=== PATIENT | male | born 1945 | race Caucasian/White ===

== ENCOUNTER 2025-01-13 21:13 | Inpatient (IN) | payer MEDICARE, SELFPAY ==
[2025-01-13 21:14] VITALS: BMI 32.8
--- NOTE | 2025-01-13 21:19 | EKG_ITS ---
[facility] Test Date: 2025-01-13 Pat Name: DORA HOGAN Department: Room: - Gender: Male Templer Head: : 1945 Requested By: Eriberto Vegas Order Number: [id number] Reading MD: Eriberto Vegas Measurements Intervals [place] Rate: 109 P: 63 [place]: 184 QRS: -55 QRSD: 117 T: 102 QT: 332 QTc: 448 Interpretive Statements SINUS TACHYCARDIA LEFT AXIS DEVIATION [QRS AXIS < -30] LEFT VENTRICULAR HYPERTROPHY AND ST-T CHANGE [VOLTAGE CRITERIA PLUS ST/T ABNORMALITY] POSSIBLE ANTEROSEPTAL MYOCARDIAL INFARCTION , OF INDETERMINATE AGE [30 ms Q WAVE IN V1-V4] No previous ECG available for comparison /store/S0/[id number]/[id number]
[2025-01-13 21:25] VITALS: BP 174/67; PULSE 114; RESP 20; TEMP 36.6; O2SAT 92
--- NOTE | 2025-01-13 21:35 | XR_ITS ---
Examination: CTA chest with intravenous contrast 2-D reconstructions 3-D reconstructions, vascular Date and time of exam: January 14, 2025 0155 hrs. Indications: Chest pain shortness of breath today CTDI: vol (mGy) 11.8 DLP: (mGycm) 465 Technique: Multiple axial sections of the thorax have been obtained. 3 mm slice thickness, from below the hemidiaphragms to above the apices of the lungs. Mediastinal and lung density settings have been obtained. 2-D sagittal and coronal reconstructions. 3-D angiographic renderings, 3-D volume renderings, 3D post processing, vascular maximum intensity projections obtained. Contrast administered is 100 cc Isovue-370. Low dose protocols were performed. One or more of the following dose reduction techniques were used; automated exposure control, adjustment of the mA and/or KV according to patient size, use of iterative reconstruction technique. Findings: Thoracic aortic calcification no aneurysmal dilatation Main pulmonary artery segment 37 mm No pulmonary artery emboli No paratracheal tracheobronchial or bronchopulmonary adenopathy Atelectasis in the left lower lobe Small calcified granuloma right lower lobe No pneumonia or pulmonary edema 6 mm liver cyst No splenic or pancreatic lesion No hydronephrosis Impression: Pulmonary artery hypertension pattern Negative for pulmonary artery emboli No pneumonia or pulmonary edema
--- NOTE | 2025-01-13 21:35 | XR_ITS ---
Examination: PA chest single view Technique: Upright PA chest single view Exam date and time: November 15, 2024 2144 hrs. Indications: Hypertension today. Findings: Mild CHF Mild enlargement cardiac contour, prosthetic mitral valve Prominent vascular congestion including central vascular engorgement Subtle edema at the lung bases Atelectasis left base Impression: Mild CHF
[2025-01-13 22:02] LABS: Lactate (Lactic Acid) 1.2 mMol/L (0.4-2.0)
[2025-01-13 22:05] LABS: Basophils # (Auto) 0.1 Thou/mm3 (0.0-0.2); Basophils % (Auto) 1 % (0-2.5); Eosinophils # (Auto) 0.4 Thou/mm3 (0.0-0.5); Eosinophils % (Auto) 5 % (0-10); Hematocrit 41.8 % (41.0-53.0); Hemoglobin 14.1 g/dL (13.5-16.0); Immature Granulocytes % (Auto) 0 % (0-0); Immature Granulocytes Auto 0.04 Thou/mm3 (0.00-0.00); Lymphocytes % (Auto) 21 % (10-50); Mean Corpuscular HGB Conc 33.7 g/dl (31.0-37.0); Mean Corpuscular Hemoglobin 29.4 pg (25.0-35.0); Mean Corpuscular Volume 87 fL (80-100); Monocytes # (Auto) 0.7 Thou/mm3 (0.0-0.8); Monocytes % (Auto) 8 % (0-12); Neutrophils # (Auto) 6.2 Thou/mm3 (1.8-7.7); Neutrophils % (Auto) 65 % (37-80); Nucleated Red Blood Cell % 0 /100 WBC (0); Platelet Count 264 Thou/mm3 (140-440); RDW Standard Deviation 43.1 fL (35.1-43.9); Red Blood Count 4.79 Miln/mm3 (4.50-5.90); White Blood Count 9.5 Thou/mm3 (3.8-10.6)
[2025-01-13 22:18] LABS: Partial Thromboplastin Time 24.8 Seconds (22.0-36.0); Prothrombin Time 10.9 Seconds (9.0-12.2)
[2025-01-13 22:21] VITALS: BP 157/72; PULSE 90; RESP 19; O2SAT 98
[2025-01-13 22:23] LABS: B-Type Natriuretic Peptide 295 pg/mL (0-100)
[2025-01-13 22:32] LABS: Alanine Aminotransferase 12 U/L (10-49); Albumin, Serum 4.1 gm/dL (3.4-4.8); Albumin/Globulin Ratio 1.5 (1.2-2.2); Alkaline Phosphatase 83 U/L (46-116); Anion Gap 7 (7-16); Aspartate Amino Transferase 16 U/L (0-34); BUN/Creatinine Ratio 8 Ratio (12-20); Bilirubin,Total 0.5 mg/dL (0.3-1.2); Blood Urea Nitrogen 8 mg/dL (9-23); Calcium 9.1 mg/dL (8.3-10.6); Calcium (Corrected) 9.1 mg/dL (8.5-10.1); Carbon Dioxide 26.5 mMol/L (20.0-31.0); Chloride 104 mMol/L (98-107); Estimated Creatinine Clearance 58.3 mL/min (>60); Globulin 2.8 gm/dL (2.3-3.5); Glucose 156 mg/dL (74-106); Magnesium 1.8 mg/dL (1.6-2.6); Osmolality,Calculated 275 (275-295); Potassium 3.8 mMol/L (3.4-5.1); Procalcitonin 0.04 ng/ml (0.0-0.49); Sodium 137 mMol/L (136-145); Total Protein 6.9 gm/dL (5.7-8.2); Troponin I 0.026 ng/mL (0.0-0.045); eGFR > 60 See Note
--- NOTE | 2025-01-13 22:32 | PD.EDCHEST ---
ED Chest Pain RME/HPI General Chief Complaint: Chest Pain Stated Complaint: HIGH HEART RATE AND BP Time Seen by Provider: 01/13/25 21:35 Arrival date/time: 01/13/25 21:13 79M with history NF, mitral valve repair (2016), HTN, and HLD presents to ED with 1 hour of SOB and elevated BP/HR. Patient denies URI symptoms and CP. Related Data Home Medications ?Medication ?Instructions ?Recorded ?Confirmed alendronate 10 mg tablet 10 mg PO BID 12/01/17 01/18/22 aspirin 81 mg tablet 81 mg PO QDAY 01/18/22 01/18/22 atorvastatin 40 mg tablet 40 mg PO QPM 01/18/22 01/18/22 calcium 600 mg (as carbonate)-vit 1 tab PO DAILY 01/18/22 01/18/22 D3 10 mcg (400 unit) chewable tablet (Calcium 600 with Vitamin D3) cyanocobalamin (vitamin B-12) 1,000 mcg PO QDAY 01/18/22 01/18/22 1,000 mcg tablet docusate sodium 100 mg capsule 1 mg PO BID 01/18/22 01/18/22 (Colace) flaxseed 1,000 mg capsule 1,400 mg PO DAILY 01/18/22 01/18/22 gabapentin 600 mg tablet 600 mg PO BID 01/18/22 01/18/22 metoprolol tartrate 25 mg tablet 25 mg PO BID 01/18/22 01/18/22 naproxen 250 mg tablet 250 mg BID 01/18/22 01/18/22 Allergies Allergy/AdvReac Type Severity Reaction Status Date / Time honeydew melon Allergy Severe Anaphylaxis Uncoded 01/18/22 17:25 Past Medical History Past Medical History NEUROLOGIC: Negative Neurological Disorders or Seizures CARDIAC: Positive Cardiac Disorders (htn, mitral valve regurgitation), Hypercholesterolemia, Valvular Heart Disease (MITRAL VALVE REPAIRED IN 2015) and Hypertension; Negative Congestive Heart Failure RESPIRATORY: Negative Chronic Obstructive Pulmonary Disease (COPD) or Asthma GASTROINTESTINAL: Negative Gastrointestinal Disorders GENITOURINARY: Negative Genitourinary Disorders or Renal Disease REPRODUCTIVE: Negative Breast Cancer MUSCULOSKELETAL: Positive Musculoskeletal Disorders and Osteoporosis (TAKES FOSOMAX) ENT: Positive Cataracts (OU) ENDOCRINE: Negative Endocrine Disorders, Diabetes Mellitus Type 1 or Diabetes Mellitus Type 2 HEMATOLOGIC: Negative Blood Disorders or Sickle Cell Disease OTHER HISTORY: Positive Measles; Negative Blood Transfusions, Blood Transfusion Reaction, Anesthesia Reactions or Breast Cancer Family History FAMILY HISTORY: Positive Family Cardiac Disorders (BROTHER-[place]) Surgical History SURGICAL: Positive Cardiac Surgery, Open Heart Surgery (MITRAL VALVE REPAIRED 2015), Valve Replacement (REPAIRED) and Abdominal Surgery (BILATERAL INGUINAL HERNIA W/ MEASH); Negative Joint Replacement, Neurologic Surgery or Vasectomy Social History SMOKING STATUS: Never smoker Course Orders Category Date Time Status CT Screening NOW Care 01/13/25 21:36 Active Assistant Terminal Manager Q4H START 00 Care 01/13/25 21:36 Active EKG (ED ONLY) *Do not use* NOW Care 01/13/25 21:19 Completed Insert IV NOW Care 01/13/25 21:[address] angio chest Stat Exams 01/13/25 21:35 Ordered EKG (ED Only) Stat Exams 01/13/25 21:19 Draft XR chest 1V portable Stat Exams 01/13/25 21:35 Completed B-Type Natriuretic Peptide Stat Lab 01/13/25 21:43 Completed CBC Stat Lab 01/13/25 21:43 Completed Comprehensive Metabolic Panel Stat Lab 01/13/25 21:43 Completed Lactate (Lactic Acid) Stat Lab 01/13/25 21:43 Completed Magnesium Stat Lab 01/13/25 21:43 Completed Partial Thromboplastin Time Stat Lab 01/13/25 21:43 Completed Procalcitonin Stat Lab 01/13/25 21:43 Completed Prothrombin Time with INR Stat Lab 01/13/25 21:43 Completed Troponin I Stat Lab 01/13/25 21:43 Completed Nitroglycerin [Nitrostat 1/150] Med 01/13/25 21:55 Discontinued 0.4 mg SL X1 ONE Oxygen Delivery NOW RT 01/13/25 21:36 Active Vital Signs Vital signs: Vital Signs Temperature 97.9 F 01/13/25 21:25 Pulse Rate 114 H 01/13/25 21:25 Respiratory Rate 20 01/13/25 21:25 Blood Pressure 174/67 H 01/13/25 21:25 Pulse Oximetry (%) 92 L 01/13/25 21:25 Oxygen Delivery Method Room Air 01/13/25 21:25 Chest Pain MDM Narrative MDM Narrative:: 79M with history NF, mitral valve repair (2015), HTN, and HLD presents to ED with 1 hour of SOB and elevated BP/HR. Patient denies URI symptoms and CP. Physical exam reveals clear lungs. Mildly increased WOB. Patient is afebrile, calm, and alert. EKG shows sinus tach of Medications / Prescriptions Medication administrations:: Medication Administration History Discontinued Medications Nitroglycerin (Nitroglycerin 0.4 Mg Subl Btl #25) 0.4 mg SL X1 ONE Stop: 01/13/25 21:56 Discharge Plan Prescriptions/Referrals Prescriptions/Med Rec: No Action alendronate 10 mg Tablet 10 mg PO BID atorvastatin 40 mg Tablet 40 mg PO QPM gabapentin 600 mg Tablet 600 mg PO BID metoprolol tartrate 25 mg Tablet 25 mg PO BID naproxen 250 mg Tablet 250 mg BID cyanocobalamin (vitamin B-12) 1,000 mcg Tablet 1,000 mcg PO QDAY docusate sodium [Colace] 100 mg Capsule 1 mg PO BID aspirin 81 mg Tablet 81 mg PO QDAY Calcium 600 with Vitamin D3 600 mg-10 mcg (400 unit) Tablet,Chewable 1 tab PO DAILY flaxseed 1,000 mg Capsule 1,400 mg PO DAILY Referrals: No Primary/Family,Physician [Primary Care Provider] - In 1 week Patient/Caregiver Discharge Instructions Print Language: Irish
--- NOTE | 2025-01-13 22:36 | PD.EDSOB ---
ED SOB =RME/HPI General Chief Complaint: Chest Pain Stated Complaint: HIGH HEART RATE AND BP Time Seen by Provider: 01/13/25 21:35 Arrival date/time: 01/13/25 21:13 79M with history of NF, mitral valve repair (2016), HTN, and HLD presents to ED with 1 hour of SOB and elevated BP/HR. Patient denies URI symptoms and CP. Limitations: no limitations Related Data Home Medications ?Medication ?Instructions ?Recorded ?Confirmed alendronate 10 mg tablet 10 mg PO BID 12/01/17 01/18/22 aspirin 81 mg tablet 81 mg PO QDAY 01/18/22 01/18/22 atorvastatin 40 mg tablet 40 mg PO QPM 01/18/22 01/18/22 calcium 600 mg (as carbonate)-vit 1 tab PO DAILY 01/18/22 01/18/22 D3 10 mcg (400 unit) chewable tablet (Calcium 600 with Vitamin D3) cyanocobalamin (vitamin B-12) 1,000 mcg PO QDAY 01/18/22 01/18/22 1,000 mcg tablet docusate sodium 100 mg capsule 1 mg PO BID 01/18/22 01/18/22 (Colace) flaxseed 1,000 mg capsule 1,400 mg PO DAILY 01/18/22 01/18/22 gabapentin 600 mg tablet 600 mg PO BID 01/18/22 01/18/22 metoprolol tartrate 25 mg tablet 25 mg PO BID 01/18/22 01/18/22 naproxen 250 mg tablet 250 mg BID 01/18/22 01/18/22 Allergies Allergy/AdvReac Type Severity Reaction Status Date / Time honeydew melon Allergy Severe Anaphylaxis Uncoded 01/14/25 04:44 Review of Systems Review of Systems Systems Reviewed: All systems reviewed, normal except as documented Constitutional Constitutional: Reports system reviewed and no additional complaints, except as documented, Denies fever(s) and Denies headache(s) ENT Ears, Nose, Mouth, and Throat: Denies disequilibrium and Denies headache(s) Cardiovascular Cardiovascular: Reports system reviewed and no additional complaints, except as documented, Reports as per HPI and Reports dyspnea Respiratory Respiratory: Reports system reviewed and no additional complaints, except as documented, Denies cough and Reports dyspnea Gastrointestinal Gastrointestinal: Reports system reviewed and no additional complaints, except as documented, Denies abdominal pain, Denies nausea and Denies vomiting Neurologic Neurologic: Reports system reviewed and no additional complaints, except as documented, Denies confusion, Denies disequilibrium and Denies headache(s) Psychiatric Psychiatric: Denies confusion Past Medical History Past Medical History NEUROLOGIC: Negative Neurological Disorders or Seizures CARDIAC: Positive Cardiac Disorders, Hypercholesterolemia, Valvular Heart Disease (MITRAL VALVE REPAIRED IN 2015) and Hypertension; Negative Congestive Heart Failure RESPIRATORY: Negative Chronic Obstructive Pulmonary Disease (COPD) or Asthma GASTROINTESTINAL: Negative Gastrointestinal Disorders GENITOURINARY: Negative Genitourinary Disorders or Renal Disease REPRODUCTIVE: Negative Breast Cancer MUSCULOSKELETAL: Positive Musculoskeletal Disorders and Osteoporosis (TAKES FOSOMAX) ENT: Positive Cataracts (OU) ENDOCRINE: Negative Endocrine Disorders, Diabetes Mellitus Type 1 or Diabetes Mellitus Type 2 HEMATOLOGIC: Negative Blood Disorders or Sickle Cell Disease OTHER HISTORY: Positive Measles; Negative Blood Transfusions, Blood Transfusion Reaction, Anesthesia Reactions or Breast Cancer Family History FAMILY HISTORY: Positive Family Cardiac Disorders (BROTHER-[place]) Surgical History SURGICAL: Positive Cardiac Surgery, Open Heart Surgery (MITRAL VALVE REPAIRED 2016), Valve Replacement (REPAIRED) and Abdominal Surgery (BILATERAL INGUINAL HERNIA W/ MEASH); Negative Joint Replacement, Neurologic Surgery or Vasectomy Social History SMOKING STATUS: Never smoker ED Exam General Limitations: Present no limitations General appearance: Present alert and in no apparent distress Head Head exam: Present atraumatic Eye Eye exam: Present normal appearance, PERRL and EOMI ENT ENT exam: Present normal exam, normal oropharynx and mucous membranes moist Neck Neck exam: Present normal inspection, full ROM and trachea midline Chest Chest inspection: Present normal inspection and symmetric chest wall rise Respiratory Respiratory exam: Present normal lung sounds bilaterally Cardiovascular Cardiovascular exam: Present regular rate, normal rhythm and normal heart sounds Abdominal Exam Abdominal exam: Present soft and normal bowel sounds Extremities Exam Extremities exam: Present normal inspection and full ROM Back Exam Back exam: Present normal inspection and full ROM Neurological Exam Neurological exam: Present alert, oriented X3 and CN II-XII intact Psychiatric Psychiatric exam: Present normal affect and normal mood Skin Skin exam: Present warm, dry, intact and normal color Course Quality Measures none Orders Category Date Time Status Patient Condition Routine Admission 01/14/25 04:20 Ordered COVID-19 Screening Questionnaire NOW Care 01/14/25 03:[address] Screening NOW Care 01/13/25 21:36 Active Art Consultant Q4H START 00 Care 01/13/25 21:36 Active Decision to Admit X1 Care 01/14/25 03:38 Completed EKG (ED ONLY) *Do not use* NOW Care 01/13/25 21:19 Completed EKG (ED ONLY) *Do not use* NOW Care 01/14/25 01:13 Completed Insert IV NOW Care 01/13/25 21:35 Active Notify provider NEEDED Care 01/14/25 04:20 Active Consult to Cardiology Stat Cons 01/14/25 03:[address] angio chest Stat Exams 01/13/25 21:35 Taken EKG (ED Only) Stat Exams 01/13/25 21:19 Draft EKG (ED Only) Stat Exams 01/14/25 01:13 Draft XR chest 1V portable Stat Exams 01/13/25 21:35 Completed B-Type Natriuretic Peptide Stat Lab 01/13/25 21:43 Completed CBC Stat Lab 01/13/25 21:43 Completed Comprehensive Metabolic Panel Stat Lab 01/13/25 21:43 Completed Lactate (Lactic Acid) Stat Lab 01/13/25 21:43 Completed Magnesium Stat Lab 01/13/25 21:43 Completed Partial Thromboplastin Time Stat Lab 01/13/25 21:43 Completed Procalcitonin Stat Lab 01/13/25 21:43 Completed Prothrombin Time with INR Stat Lab 01/13/25 21:43 Completed Troponin I Stat Lab 01/13/25 21:43 Completed Troponin I Stat Lab 01/14/25 00:43 Completed Urinalysis, C/S if Indicated Stat Lab 01/13/25 23:50 Completed Aspirin Med 01/13/25 22:38 Discontinued 325 mg PO X1 ONE Nitroglycerin [Nitrostat 1/150] Med 01/13/25 21:55 Discontinued 0.4 mg SL X1 ONE Code Status Routine Oth 01/14/25 04:20 Ordered Oxygen Delivery NOW RT 01/13/25 21:36 Active Vital Signs Vital signs: Vital Signs Temperature 97.9 F 01/13/25 21:25 Pulse Rate 114 H 01/13/25 21:25 Respiratory Rate 20 01/13/25 21:25 Blood Pressure 174/67 H 01/13/25 21:25 Pulse Oximetry (%) 92 L 01/13/25 21:25 Oxygen Delivery Method Room Air 01/13/25 21:25 O2 at 92% on RA Shortness of Breath / Dyspnea MDM Narrative MDM Narrative:: 79M with history of NF, mitral valve repair (2016), HTN, and HLD presents to ED with 1 hour of SOB and elevated BP/HR. Patient denies URI symptoms and CP. Physical exam reveals clear lungs. Mildly increased WOB. Patient is afebrile, calm, and alert. EKG shows sinus tach of 109 with non-specific ST-T wave changes. CXR shows mild CHF. Initial trop normal. 2nd trop 0.5 and EKG was repeated which showed NSR with the same non-specific ST-T wave changes. Patient is feeling better after Nitro SL and loading dose of aspirin. Rest of labs unremarkable including no leukocytosis. Coags normal. CMP unmarkable. UA clean. Procal/lactate normal. CT no PE or another acute abnormalities. Mildly elevated BNP likely due to NSTEMI. Spoke to Dr. Rhodse, cardiology who will consult. Spoke to Dr Roche IM resident and Dr. Pardo, IM attending who will admit. IM resident states since Dr. Muir is patient's vacuum bottle assembler, he will consult. Patient admitted upstairs. Patient data External records reviewed:: [facility] previous records Clinical information provided by:: patient Social determinants that could affect healthcare access:: none Patient has the following chronic illnesses:: NF, mitral valve repair (2016), HTN, and HLD How is presenting disease/condition affected by chronic disease/condition?: exacerbated by Evaluation data The following diagnostics were reviewed and interpreted by me:: lab results, radiology exam(s) and EKG tracing(s) Lab and/or radiology exams considered but not ordered:: ordered Interpretation Summary: above Medications / Prescriptions Medications or Prescriptions considered but not ordered:: ordered Medication administrations:: Medication Administration History Acetaminophen (Acetaminophen 325 Mg Tablet) 650 mg PO Q6H PRN PRN Reason: Fever >100.4 or Pain 1-3 Stop: 02/13/25 04:29 Aspirin (Aspirin Ec 81 Mg Tabec) 81 mg PO QDAY TELMA Stop: 02/13/25 08:59 Atorvastatin Calcium (Atorvastatin Calcium 20 Mg Tablet) 40 mg PO HS TELMA Stop: 02/13/25 20:59 Gabapentin (Gabapentin 300 Mg Capsule) 600 mg PO BID TELMA Stop: 02/13/25 08:59 Heparin Sodium/Dextrose (Heparin In D5w Ivpb) 25,000 unit in 250 mls @ 9.999 mls/hr IV .Q24H TELMA; Protocol Stop: 01/28/25 04:44 Last Admin: 01/14/25 05:29 Dose: 11.05 units/kg/hr, 9.999 mls/hr Documented By: CVL Co-signed By: Nitroglycerin (Nitroglycerin 0.4 Mg Subl Btl #25) 0.4 mg SL Q5MIN PRN PRN Reason: CHEST PAIN Ondansetron HCl (Ondansetron Inj 2 Mg/Ml Inj 2 Ml) 4 mg IV Q6H PRN; Protocol PRN Reason: NAUSEA OR VOMITING Stop: 02/13/25 04:29 Discontinued Medications Aspirin (Aspirin 325 Mg Tablet) 325 mg PO X1 ONE Stop: 01/13/25 22:39 Last Admin: 01/13/25 22:55 Dose: 325 mg Documented By: CVL Heparin Sodium (Porcine) (Heparin Sod Inj 5000 Unit/Ml Vial) 4,000 unit IV X1 ONE; Protocol Stop: 01/14/25 04:35 Last Admin: 01/14/25 05:10 Dose: 4,000 unit Documented By: CVL Co-signed By: LUIZ Heparin Sodium/Dextrose (Heparin In D5w Ivpb) 25,000 unit in 250 mls @ 10 mls/hr IV .Q24H TELMA; Protocol Stop: 01/28/25 04:44 Nitroglycerin (Nitroglycerin 0.4 Mg Subl Btl #25) 0.4 mg SL X1 ONE Stop: 01/13/25 21:56 Last Admin: 01/13/25 22:56 Dose: 0.4 mg Documented By: CVL above Consultations Consultation(s) initiated? (list below): Yes Diagnosis Shortness of Breath Differential Diagnosis: acute exacerbation of chronic obstructive airways disease, congestive heart failure, community acquired pneumonia, asthma with exacerbation, pulmonary embolism and other (leaky valve) Most likely diagnosis given after review of the tests above:: NSTEMI Admission Indicated Admission indicated?: indicated Admission Request Was there a request for admission?: Yes Admission Attestation Admission request attestation: Discussed case with [Dr. Pardo] from Hospitalist service regarding admission. Discussed patients ED course, exam findings, labs, and radiology results. The Hospitalist [agrees] to accept the patient for admission. Disposition Plan Disposition Plan: Admit Discharge Plan Plan Patient Disposition: Admit Acute Care w/in Hospital Problem List Clinical Impression: Acute non-ST elevation myocardial infarction (NSTEMI)
--- NOTE | 2025-01-13 22:40 | PC.NURSE ---
PT RECEIVED FROM [facility] , PT CAME TO ER FOR C/O SOB AND EPISODE OF FAST HR AND HIGH BP, NO C/O CP, NO N/V/D. PUT PT ON MONITOR AND INFORMED HIM HE WILL GET MEDS AND WILL WAIT TO HAVE CT.
[2025-01-13 22:41] VITALS: PULSE 90
[2025-01-13 22:43] VITALS: BP 173/74; PULSE 95; RESP 18; TEMP 36.1; O2SAT 97
[2025-01-13] MEDS: Aspirin 325 MG TABLET PO (22:55)
[2025-01-13 22:56] VITALS: BP 173/74; PULSE 90
[2025-01-13] MEDS: NITROGLYCERIN 0.4 MG SUBL BTL #25 SL (22:56)
[2025-01-13 23:58] LABS: Collection Type, Urine Clean Catch
[2025-01-14] VITALS (19 sets, daily range): BP systolic 89–163; BP diastolic 61–95; PULSE 67–86; RESP 18–97; TEMP 36.3–36.9; O2SAT 92–100
[2025-01-14 00:11] LABS: Bilirubin,Urine Negative (Negative); Blood,Urine Negative (Negative); Clarity,Urine Clear (Clear/Hazy); Color,Urine Lt-Yellow (Lt Yel-Yel); Culture Indicated,Urine Not Indicated; Glucose, Urine Negative (Negative); Ketones,Urine Negative (Negative); Leukocyte Esterase,Urine Negative (Negative); Nitrite,Urine Negative (Negative); Protein,Urine Negative (Neg - Trace); RBC,Urine < 1 /hpf (0-3); Specific Gravity,Urine 1.008 (1.001-1.035); Squamous Epithelial Cell,Urine < 1 /hpf (0-5); Urobilinogen,Urine Negative mg/dL (0.0-1.0); WBC,Urine < 1 /hpf (0-5)
[2025-01-14 01:12] LABS: Troponin I 0.506 ng/mL (0.0-0.045)
--- NOTE | 2025-01-14 01:13 | EKG_ITS ---
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: : 1945 Requested By: Eriberto Vegas Order Number: [id number] Reading MD: Eriberto Vegas Measurements Intervals [place] Rate: 81 P: 49 [place]: 185 QRS: -55 QRSD: 122 T: 126 QT: 370 QTc: 430 Interpretive Statements SINUS RHYTHM LEFT AXIS DEVIATION [QRS AXIS < -30] RIGHT BUNDLE BRANCH BLOCK [120+ ms QRS DURATION, UPRIGHT V1, 40+ ms S IN I/aVL/V4/V5/V6] LEFT VENTRICULAR HYPERTROPHY AND ST-T CHANGE [VOLTAGE CRITERIA PLUS ST/T ABNORMALITY] POSSIBLE ANTEROSEPTAL MYOCARDIAL INFARCTION , OF INDETERMINATE AGE [30 ms Q WAVE IN V1-V4] Compared to ECG 01/13/2025 21:28:44 Right bundle-branch block now present Sinus tachycardia no longer present ST (T wave) deviation still present Myocardial infarct finding still present /store/S0/[id number]/[id number]
--- NOTE | 2025-01-14 03:26 | PRELIM_ITS ---
CT angiogram of the chest with intravenous contrast (axial sections with sagittal and coronal reformats) January 14, 2025 0155 hours Clinical History: Shortness of breath and hypoxia. Technique:Helical axial sections with sagittal and coronal reformats of the chest were obtained with intravenous contrast. Iterative reconstruction technique was employed to reduce patient radiation exposure. 3D/MIP reconstructed images were also provided. Comparison: No prior study is available for comparison. Findings: There is no filling defect within the pulmonary artery divisions to suggest pulmonary thromboembolism. The mediastinum demonstrates no evidence of mass or lymphadenopathy. The thoracic aorta demonstrates atheromatous calcification without evidence of aneurysm. There is no pericardial effusion. Median s ternotomy wires are identified. Bibasilar streaky atelectasis is seen. There is a calcified nodule in the right lower lobe, measuring 8 mm(image 106/183). There is pleural thickening of the right hemithorax. No evidence of pleural effusion or pneumothorax. A small hiatal hernia is present. Degenerative changes are identified in the spine. The visualized upper abdominal viscera demonstrates a small hypodense lesion in the liver, which is too small to characterize. Impression: 1. No CT evidence of pulmonary thromboembolism. 2. Right lower lobe calcified nodule as described likely an old calcified granuloma. Recommend follow-up. 3. Other findings as described above. Report Electronically Signed By: Kris Ferreira 01/14/2025 3:25:18 AM [EST]
--- NOTE | 2025-01-14 04:48 | PD.RESHP ---
Documentation for date of: 01/14/25 [facility] History of Present Illness Chief complaint: Shortness of breath and left-sided chest pain History of present illness: Mr. Lentz is a 79-year-old male with past medical history significant for neurofibromatosis type I, hyperlipidemia, mitral valve repair in 2016, hypertension who presented to the ED after experiencing shortness of breath and left-sided chest pain that radiated to his left shoulder blade around 7:30 PM. Patient was sitting in his recliner, watching TV, when the chest pain and shortness of breath suddenly began. Patient initially rated the pain as sharp and rated a 4 out of 10, which improved after receiving aspirin and nitroglycerin sublingual. Patient continues to have this left chest ache, that is uncomfortable but not painful. Patient denies any use of home oxygen, numbness or weakness in his lower extremities, headache, dizziness. ROS: Patient has a chronic cough that he has been having for the last few months, and allergic rhinitis bilaterally ED course: Patient presented with a blood pressure 174/67, heart rate of 114, and afebrile. Patient initially was on room air, however desaturated for a while, briefly requiring nasal cannula. Labs significant for elevated troponin at 0.506, first troponin was negative at 0.021. BNP was also mildly elevated at 295. UA was negative for UTI. First EKG showed Sinus tachycardia and some nonspecific ST T changes, and repeat EKG status post intervention showed mild ST elevation in lead III as well as a new right bundle branch block, otherwise sinus rhythm. Chest x-ray showed mild CHF pattern. CTA ruled out PE. Patient will be admitted to telemetry for further management of unstable angina versus NSTEMI workup. Review of Systems Review of Systems Systems Reviewed: All systems reviewed, normal except as documented Past Medical History Past Medical History Comments PMH COMMENT: Past medical history: As mentioned above Past surgical history: 2 inguinal hernia repairs, mitral valve repair, tonsillectomy, bilateral cataract surgery Allergies: None to any medications, however allergic to some weeds and garden Social history: Patient drinks about 2 glasses of wine/week, denies using any tobacco or any other illicit drugs Family history: Mother had a history of a heart murmur and father has history of CHF and . Patient also has a brother who unfortunately passed at age 43 due to heart attack. Meds: Per patient, patient takes metoprolol 25 mg p.o. twice daily, atorvastatin 40 mg at bedtime, alendronate, calcium, aspirin 81 mg daily, and gabapentin 600 mg p.o. twice daily Exam Vital Signs Temp Pulse Resp BP Pulse Ox O2 Del Method O2 Flow Rate 98.5 F 68 19 140/86 H 96 Room Air 2 01/14/25 03:51 01/14/25 03:51 01/14/25 03:51 01/14/25 03:51 01/14/25 03:51 01/14/25 03:51 01/14/25 00:30 Narrative Exam General Appearance: Pt laying in bed, able to sit upright with no obvious distress. Elderly male, cooperative, well-nourished and developed. HEENT: NC/AT, no scleral icterus, no conjunctival pallor, MMM, bilateral erythematous eyes Lungs: CTAB, no wheezes or crackles appreciated CVS: RRR, S1/S2 heard, no murmurs or rubs appreciated, trace edema in lower extremities ABD: Soft, non-tender, obese, non-distended, BS + in all 4 quadrants EXT: no deformity/edema/lesions/cyanosis/clubbing, radial pulses 2+ BL, DP pulses 2 + BL SKIN: Skin exam normal without any rashes. Neuro: A&O x 3. No gross neurological deficits. Motor and sensory grossly intact in B/L UL and LL. Psych: Appropriate mood and affect Results: Labs 01/14/25 04:57 01/13/25 21:43 Labs: Short CBC 01/13/25 Range/Units 21:43 WBC 9.5 (3.8-10.6) Thou/mm3 Hgb 14.1 (13.5-16.0) g/dL Hct 41.8 (41.0-53.0) % Plt Count 264 (140-440) Thou/mm3 BMP 01/13/25 21:43 Sodium 137 Potassium 3.8 Chloride 104 Carbon Dioxide 26.5 BUN 8 L Creatinine 1.0 Glucose 156 H Calcium 9.1 Cardiac Enzymes 01/13/25 01/14/25 Range/Units 21:43 00:43 Troponin I 0.026 0.506 H* D (0.0-0.045) ng/mL Liver Function 01/13/25 Range/Units 21:43 Total Bilirubin 0.5 (0.3-1.2) mg/dL AST 16 (0-34) U/L ALT 12 (10-49) U/L Alkaline Phosphatase 83 (46-116) U/L Albumin 4.1 (3.4-4.8) gm/dL Urine 01/13/25 Range/Units 23:50 Urine Color Lt-Yellow (Lt Yel-Yel) Urine Clarity Clear (Clear/Hazy) Urine pH 7.0 (5.0-7.0) Ur Specific [place] 1.008 (1.001-1.035) Urine Protein Negative (Neg - Trace) Urine Glucose (UA) Negative (Negative) Quality Measures Quality Measures none Advance care planning discussed with:: patient Medications Home Medications and Allergies Home Medications ?Medication ?Instructions ?Recorded ?Confirmed ?Type alendronate 10 mg tablet 10 mg PO BID 12/01/17 01/18/22 History aspirin 81 mg tablet 81 mg PO QDAY 01/18/22 01/18/22 History atorvastatin 40 mg tablet 40 mg PO QPM 01/18/22 01/18/22 History calcium 600 mg (as carbonate)-vit 1 tab PO DAILY 01/18/22 01/18/22 History D3 10 mcg (400 unit) chewable tablet (Calcium 600 with Vitamin D3) cyanocobalamin (vitamin B-12) 1,000 mcg PO QDAY 01/18/22 01/18/22 History 1,000 mcg tablet docusate sodium 100 mg capsule 1 mg PO BID 01/18/22 01/18/22 History (Colace) flaxseed 1,000 mg capsule 1,400 mg PO DAILY 01/18/22 01/18/22 History gabapentin 600 mg tablet 600 mg PO BID 01/18/22 01/18/22 History metoprolol tartrate 25 mg tablet 25 mg PO BID 01/18/22 01/18/22 History naproxen 250 mg tablet 250 mg BID 01/18/22 01/18/22 History Allergies Allergy/AdvReac Type Severity Reaction Status Date / Time honeydew melon Allergy Severe Anaphylaxis Uncoded 01/14/25 04:44 Visit Medications Acetaminophen (Acetaminophen 325 Mg Tablet) 650 mg PO Q6H PRN PRN Reason: Fever >100.4 or Pain 1-3 Stop: 02/13/25 04:29 Aspirin (Aspirin Ec 81 Mg Tabec) 81 mg PO QDAY TELMA Stop: 02/13/25 08:59 Atorvastatin Calcium (Atorvastatin Calcium 20 Mg Tablet) 40 mg PO HS [facility] Stop: 02/13/25 20:59 Gabapentin (Gabapentin 300 Mg Capsule) 600 mg PO BID [facility] Stop: 02/13/25 08:59 Heparin Sodium (Porcine) (Heparin Sod Inj 5000 Unit/Ml Vial) 5,050 unit 60 unit/kg (5050 unit) IV X1 ONE; Protocol Stop: 01/14/25 04:35 Heparin Sodium/Dextrose (Heparin In D5w Ivpb) 25,000 unit in 250 mls @ 10.07 mls/hr IV .Q24H TELMA; Protocol Stop: 01/28/25 04:44 Ondansetron HCl (Ondansetron Inj 2 Mg/Ml Inj 2 Ml) 4 mg IV Q6H PRN; Protocol PRN Reason: NAUSEA OR VOMITING Stop: 02/13/25 04:29 Discontinued Medications Aspirin (Aspirin 325 Mg Tablet) 325 mg PO X1 ONE Stop: 01/13/25 22:39 Last Admin: 01/13/25 22:55 Dose: 325 mg Nitroglycerin (Nitroglycerin 0.4 Mg Subl Btl #25) 0.4 mg SL X1 ONE Stop: 01/13/25 21:56 Last Admin: 01/13/25 22:56 Dose: 0.4 mg Assessment & Plan Plan Mr. Lentz is a 79-year-old male with past medical history significant for neurofibromatosis type I, hyperlipidemia, mitral valve repair in 2016, hypertension who presented to the ED after experiencing shortness of breath and left-sided chest pain around 7:30 PM and admitted to telemetry for further management of unstable angina versus NSTEMI workup. #r/o ACS #Unstable Angina vs NSTEMI DDx: most liklely NSTEMI type I vs Unstable Angina Presented with left sternal chest pain that radiated to left shoulder blade lasted a few hours until patient received ASA and Nitroglycerin SL. KIRSTY score: 5 points indicating 26% risk at 14 days of all cause mortality Vero score: 139 points indicating 15% probability of from admission to 6 months Troponin elevated to 0.159 EKG demonstrated sinus rhythm with nonspecific ST changes, and repeat EKG did show ST elevation in lead 3 and new RBBB Patient's office nurse is Dr. Muir. - Troponin trend Q8HR - Echo - A1c, Lipid panel, TSH - Titrate O2 as needed for symptoms - Aspirin 325 x 1, Aspirin 81mg QD after - Heparin gtt - Atorvastatin 80mg HS - Nitroglycerin 0.4 SL PRN - Tylenol for fever and pain - Will hold patient's home Metoprolol Tartrate 25mg BID d/t low HR - Consider IV morphine in addition if chest pain persists and worsens - Cardiology consult #Hyperlipidemia Patient takes home atorvastatin 40 mg p.o. every afternoon Will actually increase patient's home dose to atorvastatin 80 mg and lieu of above working diagnosis #Essential hypertension Patient takes home metoprolol tartrate 25 mg p.o. twice daily - Will restart when patient's heart rate increases, currently on the softer end #Neurofibromatosis type I Will restart patient's home gabapentin 600 mg p.o. twice daily #Osteoporosis Patient takes alendronate, however unsure how much and when he takes medication. Per external med review, patient takes alendronate 10 mg p.o. twice daily - Restart pending med rec Health Maintenance: DVT prophylaxis: Heparin drip Diet: Cardiac Aragon: No Lines: PIV Supplemental O2: As needed CODE STATUS: DNR, if paperwork is needed if not reflected in hospital paperwork, can reach out to patient's spouse for further documentation; you can reach spouse, Rajendra Maldonado at [phone] Disposition: Patient is admitted to telemetry for further management of rule out ACS. Pending cardio consult, echocardiogram, repeat troponin and labs. Patient's plan and care discussed with my attending, Dr. Char Roche MD PGY-2 Attending Provider Attestation/Addendum I have examined the patient, reviewed labs and imaging findings, discussed the case with the resident(s), and reviewed entered orders. I agree with the plan of care as outlined in this note, with these additional summaries/recommendations: Patient is a 79-year-old male with a medical history of mitral valve repair in 2016, primary hypertension, hyperlipidemia,? NF who presented to [facility] emergency department on 01/14/2025 with chief complaints of left-sided chest pain and shortness of breath. Patient seen at bedside. He states he presented with left-sided chest pain not relieved with rest and shortness of breath. He denies similar symptoms or history of heart attack. In the emergency department delta Trop elevated to 0.506. EKG shows sinus rhythm, rate 81, left axis deviation, RBBB, and relatively nonspecific ST changes. Given patient's typical symptoms this is concerning for unstable angina/NSTEMI. Cardiology consulted in the emergency department and recommends admission. Status post loading dose aspirin. Start aspirin 81 mg p.o. daily, high intensity statin, heparin gtt, and as needed nitroglycerin. Risk factor screening with A1c, lipid panel, and TSH. Order echocardiogram. Trend troponins every 8 hours or until downtrend. Patient updated on the plan and in agreement. All questions answered to satisfaction. Please see residents note for additional details. Dr. Char MD
[2025-01-14] MEDS: HEPARIN SOD INJ 5000 UNIT/ML VIAL 4000 UNIT IV ×2 (05:10→19:30)
[2025-01-14 05:16] LABS: Basophils # (Auto) 0.1 Thou/mm3 (0.0-0.2); Basophils % (Auto) 1 % (0-2.5); Eosinophils # (Auto) 0.3 Thou/mm3 (0.0-0.5); Eosinophils % (Auto) 4 % (0-10); Hematocrit 39.8 % (41.0-53.0); Hemoglobin 13.1 g/dL (13.5-16.0); Immature Granulocytes % (Auto) 1 % (0-0); Immature Granulocytes Auto 0.04 Thou/mm3 (0.00-0.00); Lymphocytes # (Auto) 1.7 Thou/mm3 (1.0-4.8); Lymphocytes % (Auto) 22 % (10-50); Mean Corpuscular HGB Conc 32.9 g/dl (31.0-37.0); Mean Corpuscular Hemoglobin 29.4 pg (25.0-35.0); Mean Corpuscular Volume 89 fL (80-100); Monocytes % (Auto) 12 % (0-12); Neutrophils # (Auto) 4.8 Thou/mm3 (1.8-7.7); Neutrophils % (Auto) 61 % (37-80); Nucleated Red Blood Cell % 0 /100 WBC (0); Platelet Count 189 Thou/mm3 (140-440); RDW Standard Deviation 44.7 fL (35.1-43.9); Red Blood Count 4.46 Miln/mm3 (4.50-5.90); White Blood Count 7.9 Thou/mm3 (3.8-10.6)
[2025-01-14] MEDS: Heparin/D5w 25K 250 ML Ivpb 25,000 UNIT/250 ML BAG 9.999 UNIT IV (05:29)
[2025-01-14 06:15] LABS: Alanine Aminotransferase 11 U/L (10-49); Albumin, Serum 3.9 gm/dL (3.4-4.8); Albumin/Globulin Ratio 1.6 (1.2-2.2); Alkaline Phosphatase 70 U/L (46-116); Anion Gap 5 (7-16); Aspartate Amino Transferase 15 U/L (0-34); BUN/Creatinine Ratio 9 Ratio (12-20); Bilirubin,Total 0.4 mg/dL (0.3-1.2); Blood Urea Nitrogen 8 mg/dL (9-23); Calcium 8.8 mg/dL (8.3-10.6); Calcium (Corrected) 8.9 mg/dL (8.5-10.1); Carbon Dioxide 27.1 mMol/L (20.0-31.0); Cardiac Risk Estimate 3.2 RATIO (4.0-6.7); Chloride 107 mMol/L (98-107); Cholesterol 123 mg/dL (132-200); Creatinine (Component) 0.9 mg/dL (0.6-1.3); Globulin 2.4 gm/dL (2.3-3.5); Glucose 115 mg/dL (74-106); HDL Cholesterol 39 mg/dL (40-60); LDL Cholesterol,Calculated 72 mg/dL (0-130); Osmolality,Calculated 276 (275-295); Potassium 4.6 mMol/L (3.4-5.1); Sodium 139 mMol/L (136-145); Thyroid Stimulating Hormone 3.83 uIU/mL (0.55-4.78); Total Protein 6.3 gm/dL (5.7-8.2); Triglycerides 59 mg/dL (30-150); eGFR > 60 See Note
[2025-01-14 06:17] LABS: Troponin I 1.161 ng/mL (0.0-0.045)
[2025-01-14 08:12] LABS: Partial Thromboplastin Time 25.2 Seconds (22.0-36.0); Prothrombin Time 10.9 Seconds (9.0-12.2)
[2025-01-14] MEDS: METOPROLOL TARTRATE 25 MG TABLET 50 MG PO (10:35)
[2025-01-14] MEDS: GABAPENTIN 300 MG CAPSULE 600 MG PO ×2 (10:35→21:19)
[2025-01-14] MEDS: ASPIRIN EC 81 MG TABEC PO (10:35)
[2025-01-14] MEDS: CLOPIDOGREL BISULFATE 75 MG TABLET 300 MG PO (10:35)
--- NOTE | 2025-01-14 10:49 | PC.NURSE ---
Morning medications scanned and given, [facility] would not allow to save due to provider being in the chart. Provider not present. Will attempt to document
[2025-01-14 11:44] LABS: Partial Thromboplastin Time 39.9 Seconds (22.0-36.0)
--- NOTE | 2025-01-14 12:04 | ESCONSULT_ITS ---
RE: DORA LENTZ : 1945 DATE OF CONSULTATION: 01/14/2025 Consultation is asked by the hospitalist PERTINENT HISTORY OF PRESENT ILLNESS: Mr. 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 The patient was in his usual state of health and mitral valve repair in 2014. The patient was in his usual state of health up until the evening prior to admission around 8 o'clock. The patient started having symptoms of retrosternal and left precordial chest discomfort with radiation over to the left arm. The discomfort was associated with some shortness of breath. The patient denied any complaint of diaphoresis, though denied any complaint of skipped beats or palpitations. Denied any complaint of nausea or vomiting. Because of the persistence of the discomfort, the patient was brought in over to the emergency room and was subsequently hospitalized. Since hospitalization, the patient's troponin level has been mildly elevated. The patient's chest discomfort at the present time is very minimal. PAST MEDICAL HISTORY: Significant for history of chronic hypertension for the last several years, history of hyperlipidemia for the last several years, history of previous myocardial infarction requiring left internal mammary artery bypass graft to the left anterior descending coronary artery along with mitral valve repair in 2014. PERSONAL HISTORY: The patient is a nonsmoker, nonalcoholic. FAMILY HISTORY: Noncontributory PERTINENT PHYSICAL FINDINGS: VITAL SIGNS: The patient's blood pressure is 132/83, pulse rate is 68, respirations are 21, temperature is 98, oximetry saturation 97% on room air. HEAD AND NECK: Unremarkable. JVP is not elevated. Carotid pulsations are felt well on both the sides. No carotid bruits heard. HEART: No cardiomegaly clinically. S1 and S2 are normal. No murmur or gallop is appreciated. No clicks are heard. LUNGS: Clear to percussion and auscultation. ABDOMEN: Soft. No organomegaly. EXTREMITIES: No pedal edema. Peripheral pulses in the feet are palpable. NEUROLOGIC: Unremarkable. No focal localizing neuro deficit is appreciated. DIAGNOSTIC DATA: The patient's electrocardiogram showed sinus rhythm with incomplete right bundle branch block pattern and Q-waves in leads V1 and V2 suggestive of possible septal myocardial infarction of undetermined age. 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 ST-T changes are noted in the lateral leads. Repeat EKG did not show any acute change. The chest x-ray was reported to show mild cardiac enlargement and mild vascular congestion. LABORATORY DATA: Showed on admission the patient's WBC count was 9.5, hemoglobin of 14.1 with hematocrit of 41.8. Repeat WBC count this morning is 7.9 with hemoglobin of 13.1 and hematocrit of 39.8. The BUN yesterday was 8, creatinine 1.0, potassium level of 3.8, troponin level initial one was 0.026, repeat troponin level 0.506 and third set of troponin level showed 1.161. Glucose this morning is 115, BUN this morning is 8, creatinine 0.9, potassium level is 4.6. The lipid panel this morning showed cholesterol of 123, LDL cholesterol of 72, HDL cholesterol of 39, and triglycerides of 59. The TSH level is within the euthyroid range and is 3.83. CLINICAL IMPRESSION: 1. Possible acute subendocardial myocardial infarction. 2. Arteriosclerotic heart disease with previous history of left internal mammary artery bypass graft to the left anterior descending coronary artery. 3. Status post previous mitral valve repair. 4. Chronic hypertension. 5. Hyperlipidemia. 6. Cardiac dysrhythmia. SUGGESTIONS: I agree with present plan of management of the patient of continuing the patient on intravenous heparin therapy and aspirin dose I am increasing to 325 mg daily. I am also starting the patient on clopidogrel at 300 mg daily, then 75 mg daily. Lipid-lowering agents of atorvastatin will be continued. Repeat EKG and troponin level will be checked. I will follow the patient with you and highly thank you very much for letting me participate in the care of the patient. DT: 10:28:24 TT: 12:02:00 Ref: [id number] - TID: [id number]
--- NOTE | 2025-01-14 12:14 | PD.RESPRO ---
Documentation for date of: 01/14/25 Subjective Subjective Interval history: No acute overnight events. Patient was seen and examined at bedside. Currently experiencing very mild chest discomfort, however denies any pain, shortness of breath. Labs were reviewed CBC/CMP unremarkable, troponin uptrending, Dr. Lerma was contacted, evaluated the patient, agreed with the current management, continue heparin drip, patient was given also loading dose of Plavix by cardiology, will start Plavix 75 daily, continue ACS treatment per protocol, will close monitor troponin as well as will follow-up with repeat EKG. Cardiology is on board will follow-up with further recs. Exam Vital Signs Temp Pulse Resp BP Pulse Ox O2 Del Method O2 Flow Rate 97.7 F 74 22 H 163/95 H 98 Room Air 2 01/14/25 11:04 01/14/25 11:04 01/14/25 11:04 01/14/25 11:04 01/14/25 11:01/14/25 11:04 01/14/25 00:30 Narrative Exam General Appearance: Pt laying in bed, able to sit upright with no obvious distress. Elderly male, cooperative, well-nourished and developed. HEENT: NC/AT, no scleral icterus, no conjunctival pallor, MMM, bilateral erythematous eyes Lungs: CTAB, no wheezes or crackles appreciated CVS: RRR, S1 click,(mechanical mitral valve), no murmurs or rubs appreciated, ABD: Soft, non-tender, obese, non-distended, BS + in all 4 quadrants EXT: no deformity/edema/lesions/cyanosis/clubbing, radial pulses 2+ BL, DP pulses 2 + BL SKIN: Skin exam normal without any rashes. Neuro: A&O x 3. No gross neurological deficits. Motor and sensory grossly intact in B/L UL and LL. Psych: Appropriate mood and affect Objective Labs 01/15/25 05:26 01/15/25 05:26 Labs: Laboratory Results - last 24 hr 01/13/25 01/13/25 01/14/25 21:43 23:50 00:43 WBC 9.5 RBC 4.79 Hgb 14.1 Hct 41.8 MCV 87 MCH 29.4 MCHC 33.7 RDW Std Deviation 43.1 Plt Count 264 Neut % (Auto) 65 Lymph % (Auto) 21 [place] % (Auto) 8 Eos % (Auto) 5 Baso % (Auto) 1 Neut # (Auto) 6.2 Lymph # (Auto) 2.0 [place] # (Auto) 0.7 Eos # (Auto) 0.4 Baso # (Auto) 0.1 Immature Gran # (Auto) 0.04 H Absolute Nucleated RBC 0.00 Immature Gran % 0 Nucleated RBC % 0 PT 10.9 INR 1.0 APTT 24.8 Sodium 137 Potassium 3.8 Chloride 104 Carbon Dioxide 26.5 Anion Gap 7 BUN 8 L Creatinine 1.0 Estim Creat Clear Calc 58.3 L eGFR > 60 BUN/Creatinine Ratio 8 L Glucose 156 H Calculated Osmolality 275 Lactic Acid 1.2 Calcium 9.1 Corrected Calcium 9.1 Magnesium 1.8 Total Bilirubin 0.5 AST 16 ALT 12 Alkaline Phosphatase 83 Troponin I 0.026 0.506 H* D B-Natriuretic Peptide 295 H Total Protein 6.9 Albumin 4.1 Globulin 2.8 Albumin/Globulin Ratio 1.5 Triglycerides Cholesterol LDL Cholesterol, Calc HDL Cholesterol Cholesterol/HDL Ratio Procalcitonin 0.04 TSH Ur Collection Type Clean Catch Urine Color Lt-Yellow Urine Clarity Clear Urine pH 7.0 Ur Specific [place] 1.008 Urine Protein Negative Urine Glucose (UA) Negative Urine Ketones Negative Urine Blood Negative Urine Nitrite Negative Urine Bilirubin Negative Urine Urobilinogen (Auto) Negative Ur Leukocyte Esterase Negative Urine RBC < 1 Urine WBC < 1 Ur Squamous Epith Cells < 1 Urine Bacteria None Ur Culture Indicated? Not Indicated 01/14/25 01/14/25 04:57 11:22 WBC 7.9 RBC 4.46 L Hgb 13.1 L Hct 39.8 L MCV 89 MCH 29.4 MCHC 32.9 RDW Std Deviation 44.7 H Plt Count 189 D Neut % (Auto) 61 Lymph % (Auto) 22 [place] % (Auto) 12 Eos % (Auto) 4 Baso % (Auto) 1 Neut # (Auto) 4.8 Lymph # (Auto) 1.7 [place] # (Auto) 1.0 H Eos # (Auto) 0.3 Baso # (Auto) 0.1 Immature Gran # (Auto) 0.04 H Absolute Nucleated RBC 0.00 Immature Gran % 1 H Nucleated RBC % 0 PT 10.9 INR 1.0 APTT 25.2 39.9 H D Sodium 139 Potassium 4.6 D Chloride 107 Carbon Dioxide 27.1 Anion Gap 5 L BUN 8 L Creatinine 0.9 Estim Creat Clear Calc 66.0 eGFR > 60 BUN/Creatinine Ratio 9 L Glucose 115 H Calculated Osmolality 276 Lactic Acid Calcium 8.8 Corrected Calcium 8.9 Magnesium 2.0 Total Bilirubin 0.4 AST 15 ALT 11 Alkaline Phosphatase 70 Troponin I 1.161 H* D B-Natriuretic Peptide Total Protein 6.3 Albumin 3.9 Globulin 2.4 Albumin/Globulin Ratio 1.6 Triglycerides 59 Cholesterol 123 L LDL Cholesterol, Calc 72 HDL Cholesterol 39 L Cholesterol/HDL Ratio 3.2 L Procalcitonin TSH 3.83 Ur Collection Type Urine Color Urine Clarity Urine pH Ur Specific [place] Urine Protein Urine Glucose (UA) Urine Ketones Urine Blood Urine Nitrite Urine Bilirubin Urine Urobilinogen (Auto) Ur Leukocyte Esterase Urine RBC Urine WBC Ur Squamous Epith Cells Urine Bacteria Ur Culture Indicated? Quality Measures Quality Measures none Advance care planning discussed with:: patient and spouse Assessment & Plan Assessment Current Active Medications: Generic Name Dose Route Start Last Admin Trade Name Freq PRN Reason Stop Dose Admin Acetaminophen 650 mg 01/14/25 04:30 Acetaminophen 325 Mg Tablet PO 02/13/25 04:29 Q6H PRN Fever >100.4 or Pain 1-3 Aspirin 81 mg 01/14/25 09:00 01/14/25 10:35 Aspirin Ec 81 Mg Tabec PO 02/13/25 08:59 81 mg QDAY TELMA Administration Atorvastatin Calcium 80 mg 01/14/25 21:00 Atorvastatin Calcium 20 Mg Tablet PO 02/13/25 20:59 HS [facility] Clopidogrel Bisulfate 75 mg 01/15/25 09:00 Clopidogrel Bisulfate 75 Mg Tablet PO 02/14/25 08:59 DAILY TELMA Gabapentin 600 mg 01/14/25 09:00 01/14/25 10:35 Gabapentin 300 Mg Capsule PO 02/13/25 08:59 600 mg BID TELMA Administration Heparin Sodium/Dextrose 25,000 unit in 250 mls @ 9.999 mls/hr 01/14/25 05:30 01/14/25 05:29 Heparin In D5w Ivpb IV 01/28/25 04:44 11.05 units/kg/hr .Q24H TELMA 9.999 mls/hr Administration Protocol 11.05 UNITS/KG/HR Metoprolol Tartrate 50 mg 01/14/25 09:00 01/14/25 10:35 Metoprolol Tartrate 25 Mg Tablet PO 02/13/25 08:59 50 mg BID TELMA Administration Nitroglycerin 0.4 mg 01/14/25 04:50 Nitroglycerin 0.4 Mg Subl Btl #25 SL Q5MIN PRN CHEST PAIN Ondansetron HCl 4 mg 01/14/25 04:30 Ondansetron Inj 2 Mg/Ml Inj 2 Ml IV 02/13/25 04:29 Q6H PRN NAUSEA OR VOMITING Protocol Plan Mr. Lentz is a 79-year-old male with past medical history significant for neurofibromatosis type I, hyperlipidemia, mitral valve repair in 2016, hypertension who presented to the ED after experiencing shortness of breath and left-sided chest pain , troponin was elevated, some changes was noted on EKG and patient was admitted for further management. #Chest pain #r/o ACS Most liklely NSTEMI type I 1.Presented with left sternal chest pain that radiated to left shoulder, relieved with nitro 2.EKG: incomplete right bundle branch block pattern and Q-waves in leads V1 and V2 suggestive of possible septal myocardial infarction of undetermined age. 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 ST-T changes are noted in the lateral leads, Repeat EKG -sinus rhythm 3.elevated trops 0.5->1.16 KIRSTY score: 5 points indicating 26% risk at 14 days of all cause mortality Vero score: 139 points indicating 15% probability of from admission to 6 months Patient's part time receptionist is Dr. Muir. In ED patient recieved loading dose of ASA, atorvaststin and heparin drip started - Troponin trend Q8HR - Echo - ASC protocol (ASA, plavix, Atorvastatin, Metoprolol, Heparin drip) - Nitroglycerin 0.4 SL PRN - Tylenol for fever and pain - Cardiology is on board, all recs are followed. #MV repair #Hx of CAD #Hyperlipidemia #HTN Arteriosclerotic heart disease with previous history of left internal mammary artery bypass graft to the left anterior descending coronary artery. Status post previous mitral valve repair. -management as above -cardio on board #Neurofibromatosis type I Will restart patient's home gabapentin 600 mg p.o. twice daily #Osteoporosis alendronate 10 mg p.o. twice daily Health Maintenance: Disposition: Patient is admitted to telemetry for further management of rule out ACS. Pending echocardiogram, repeat troponin and labs.Cardio is Dr. Muir DVT prophylaxis: Heparin drip Diet: Cardiac Aragon: No Lines: PIV Supplemental O2: As needed CODE STATUS: DNR, if paperwork is needed if not reflected in hospital paperwork, can reach out to patient's spouse for further documentation; you can reach spouse, Rajendra Maldonado at [phone] Patient care was discussed with attending physician Dr. Enedelia Coreas MD PGY-2 I have carefully reviewed this document. Due to imperfections in the voice software, there could be grammatical errors including phonetic/typographic errors. This in no way compromises the medical care the patient is receiving Attending Provider Attestation/Addendum I reviewed labs, imaging, EKG, home medications and prior available records. Face to face evaluation was performed by me. I have personally examined the patient and discussed assessment and plan with the IM team. I reviewed the resident note and agree with the plan with exceptions as below. Non-STEMI RBBB Neurofibromatosis type I Hyperlipidemia History of mitral valve repair Continue aspirin and atorvastatin Continue heparin drip Consults cardiology: Recommended to continue to trend troponin and repeat EKG Ordered echocardiogram Continue metoprolol Continue gabapentin
[2025-01-14 15:13] LABS: Troponin I 0.558 ng/mL (0.0-0.045)
[2025-01-14] MEDS: ACETAMINOPHEN 325 MG TABLET 650 MG PO (15:38)
--- NOTE | 2025-01-14 18:30 | EKG_ITS ---
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: : 1945 Requested By: Jorge Muir Order Number: [id number] Reading MD: Jorge Muir Measurements Intervals [place] Rate: 82 P: 137 MA: 189 QRS: 235 QRSD: 123 T: 55 QT: 367 QTc: 431 Interpretive Statements SINUS RHYTHM WITH OCCASIONAL SUPRAVENTRICULAR PREMATURE COMPLEXES ARM LEADS REVERSED [INVERTED P AND QRS IN I] Compared to ECG 01/13/2025 21:28:44 Sinus tachycardia no longer present Left-axis deviation no longer present Left ventricular hypertrophy no longer present ST (T wave) deviation no longer present Myocardial infarct finding no longer present /store/S0/[id number]/[id number].pdf
[2025-01-14 18:42] LABS: Partial Thromboplastin Time 34.1 Seconds (22.0-36.0)
[2025-01-14 19:11] LABS: Troponin I 0.414 ng/mL (0.0-0.045)
[2025-01-14] MEDS: ATORVASTATIN CALCIUM 20 MG TABLET 80 MG PO (21:38)
[2025-01-14] MEDS: METOPROLOL TARTRATE 25 MG TABLET PO (21:38)
[2025-01-14 23:33] LABS: Troponin I 0.337 ng/mL (0.0-0.045)
[2025-01-15] VITALS (11 sets, daily range): BP systolic 116–147; BP diastolic 63–82; PULSE 63–88; RESP 18–98; TEMP 36.1–36.6; O2SAT 93–95; BMI 35.3
[2025-01-15 02:03] LABS: Partial Thromboplastin Time 85.2 Seconds (22.0-36.0)
[2025-01-15] MEDS: Heparin/D5w 25K 250 ML Ivpb 25,000 UNIT/250 ML BAG 11.809 UNIT IV (03:03)
--- NOTE | 2025-01-15 05:00 | EKG_ITS ---
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
[2025-01-15 06:10] LABS: Basophils # (Auto) 0.1 Thou/mm3 (0.0-0.2); Basophils % (Auto) 1 % (0-2.5); Eosinophils # (Auto) 0.4 Thou/mm3 (0.0-0.5); Eosinophils % (Auto) 5 % (0-10); Hematocrit 41.5 % (41.0-53.0); Hemoglobin 13.5 g/dL (13.5-16.0); Immature Granulocytes % (Auto) 1 % (0-0); Immature Granulocytes Auto 0.04 Thou/mm3 (0.00-0.00); Lymphocytes # (Auto) 1.5 Thou/mm3 (1.0-4.8); Lymphocytes % (Auto) 22 % (10-50); Mean Corpuscular HGB Conc 32.5 g/dl (31.0-37.0); Mean Corpuscular Hemoglobin 29.3 pg (25.0-35.0); Mean Corpuscular Volume 90 fL (80-100); Monocytes % (Auto) 14 % (0-12); Neutrophils % (Auto) 57 % (37-80); Nucleated Red Blood Cell % 0 /100 WBC (0); Platelet Count 193 Thou/mm3 (140-440); RDW Standard Deviation 44.9 fL (35.1-43.9); Red Blood Count 4.61 Miln/mm3 (4.50-5.90); White Blood Count 6.9 Thou/mm3 (3.8-10.6)
[2025-01-15 06:38] LABS: Partial Thromboplastin Time 61.3 Seconds (22.0-36.0); Prothrombin Time 11.2 Seconds (9.0-12.2)
[2025-01-15 07:10] LABS: Alanine Aminotransferase 10 U/L (10-49); Albumin, Serum 3.9 gm/dL (3.4-4.8); Albumin/Globulin Ratio 1.6 (1.2-2.2); Alkaline Phosphatase 68 U/L (46-116); Anion Gap 5 (7-16); Aspartate Amino Transferase 13 U/L (0-34); BUN/Creatinine Ratio 9 Ratio (12-20); Bilirubin,Total 0.5 mg/dL (0.3-1.2); Blood Urea Nitrogen 8 mg/dL (9-23); Calcium 9.5 mg/dL (8.3-10.6); Calcium (Corrected) 9.6 mg/dL (8.5-10.1); Carbon Dioxide 28.5 mMol/L (20.0-31.0); Chloride 107 mMol/L (98-107); Creatinine (Component) 0.9 mg/dL (0.6-1.3); Estimated Creatinine Clearance 65.9 mL/min (>60); Globulin 2.5 gm/dL (2.3-3.5); Glucose 116 mg/dL (74-106); Magnesium 2.1 mg/dL (1.6-2.6); Osmolality,Calculated 278 (275-295); Potassium 5.5 mMol/L (3.4-5.1); Sodium 140 mMol/L (136-145); Total Protein 6.4 gm/dL (5.7-8.2); eGFR > 60 See Note
[2025-01-15 07:11] LABS: Troponin I 0.324 ng/mL (0.0-0.045)
[2025-01-15 09:29] LABS: Partial Thromboplastin Time 54.7 Seconds (22.0-36.0)
[2025-01-15] MEDS: CALCIUM CHLORIDE 10% INJ 10 ML SYRG IV (11:32)
[2025-01-15] MEDS: INSULIN HUM REGULAR 1 UNIT/0.01 ML (PER UNIT) 5 UNIT IV (11:33)
[2025-01-15] MEDS: DEXTROSE 50%-WATER INJ 50 ML SYRINGE IV (11:33)
[2025-01-15] MEDS: METOPROLOL TARTRATE 25 MG TABLET PO ×2 (11:34→20:10)
[2025-01-15] MEDS: CLOPIDOGREL BISULFATE 75 MG TABLET PO (11:34)
[2025-01-15] MEDS: GABAPENTIN 300 MG CAPSULE 600 MG PO ×2 (11:35→20:40)
[2025-01-15] MEDS: Aspirin 325 MG TABLET PO (11:35)
--- NOTE | 2025-01-15 13:10 | PD.RESPRO ---
Documentation for date of: 01/15/25 Subjective Subjective Interval history: No overnight events. Patient deneid SOB and deneid chest pain overnight. Aspirin increased form 81 mg to 325 mg qday per cardio recommendations. Patient is scheduled for PCI w/ Dr. Muir tomorrow. NPO after midnight. Hold heparin 6 hours prior to cath (msc order). Exam Vital Signs Temp Pulse Resp BP Pulse Ox O2 Del Method O2 Flow Rate 97.3 F 71 18 147/69 H 94 L Room Air 2 01/15/25 12:00 01/15/25 12:00 01/15/25 12:00 01/15/25 12:00 01/15/25 12:00 01/15/25 08:00 01/14/25 00:30 Narrative Exam General Appearance: Alert & Oriented X3, well-nourished male who is lying in bed in no acute distress HEENT: Skull symmetrical and atraumatic. Conjunctivae pin and moist. Pupils equal, round, reactive to light and accommodation (PERRL). External ear without lesion or discharge. Straight, nares patient, mucosa pink, no discharge. No thyroid nodule appreciated. No cervical lymphadenopathy. Cardio: Normal Rate and Rhythm with S1 and S2 heart sounds. No murmurs or extra heart sounds auscultated. No bruits on carotid auscultation. No peripheral edema or cyanosis. Lungs: Symmetric with good expansion. Chest and back non-tender. Breath sounds vesicular without crackles, wheezing or rhonchi Abdomen: Non-tender, Non-distended, Normal Reactive Bowel Sounds Neuro: Alert, cooperative, oriented to person, place, and time. Speech clear. CN grossly intact. Upper motor strength 5/5 and Lower motor strength 5/5. Sensation intact. Objective Labs 01/16/25 05:41 01/16/25 05:41 Labs: Laboratory Results - last 24 hr 01/14/25 01/14/25 01/14/25 14:21 18:17 22:27 WBC RBC Hgb Hct MCV MCH MCHC RDW Std Deviation Plt Count Neut % (Auto) Lymph % (Auto) [place] % (Auto) Eos % (Auto) Baso % (Auto) Neut # (Auto) Lymph # (Auto) [place] # (Auto) Eos # (Auto) Baso # (Auto) Immature Gran # (Auto) Absolute Nucleated RBC Immature Gran % Nucleated RBC % PT INR APTT 34.1 Sodium Potassium Chloride Carbon Dioxide Anion Gap BUN Creatinine Estim Creat Clear Calc eGFR BUN/Creatinine Ratio Glucose Calculated Osmolality Calcium Corrected Calcium Magnesium Total Bilirubin AST ALT Alkaline Phosphatase Troponin I 0.558 H* D 0.414 H* 0.337 H* Total Protein Albumin Globulin Albumin/Globulin Ratio 01/15/25 01/15/25 01/15/25 01:13 05:26 08:31 WBC 6.9 RBC 4.61 Hgb 13.5 Hct 41.5 MCV 90 MCH 29.3 MCHC 32.5 RDW Std Deviation 44.9 H Plt Count 193 Neut % (Auto) 57 Lymph % (Auto) 22 [place] % (Auto) 14 H Eos % (Auto) 5 Baso % (Auto) 1 Neut # (Auto) 4.0 Lymph # (Auto) 1.5 [place] # (Auto) 1.0 H Eos # (Auto) 0.4 Baso # (Auto) 0.1 Immature Gran # (Auto) 0.04 H Absolute Nucleated RBC 0.00 Immature Gran % 1 H Nucleated RBC % 0 PT 11.2 INR 1.0 APTT 85.2 H D 61.3 H D 54.7 H Sodium 140 Potassium 5.5 H D Chloride 107 Carbon Dioxide 28.5 Anion Gap 5 L BUN 8 L Creatinine 0.9 Estim Creat Clear Calc 65.9 eGFR > 60 BUN/Creatinine Ratio 9 L Glucose 116 H Calculated Osmolality 278 Calcium 9.5 Corrected Calcium 9.6 Magnesium 2.1 Total Bilirubin 0.5 AST 13 ALT 10 Alkaline Phosphatase 68 Troponin I 0.324 H* Total Protein 6.4 Albumin 3.9 Globulin 2.5 Albumin/Globulin Ratio 1.6 Quality Measures Quality Measures none Advance care planning discussed with:: patient and spouse Assessment & Plan Assessment Current Active Medications: Generic Name Dose Route Start Last Admin Trade Name Freq PRN Reason Stop Dose Admin Acetaminophen 650 mg 01/14/25 04:30 01/14/25 15:38 Acetaminophen 325 Mg Tablet PO 02/13/25 04:29 650 mg Q6H PRN Administration Fever >100.4 or Pain 1-3 Aspirin 325 mg 01/15/25 09:00 01/15/25 11:35 Aspirin 325 Mg Tablet PO 02/14/25 08:59 325 mg QDAY TELMA Administration Atorvastatin Calcium 80 mg 01/14/25 21:00 01/14/25 21:38 Atorvastatin Calcium 20 Mg Tablet PO 02/13/25 20:59 80 mg HS TELMA Administration Clopidogrel Bisulfate 75 mg 01/15/25 09:00 01/15/25 11:34 Clopidogrel Bisulfate 75 Mg Tablet PO 02/14/25 08:59 75 mg DAILY TELMA Administration Dextrose 25 ml 01/15/25 07:46 Dextrose 50%-Water Inj 50 Ml Syringe IV 02/14/25 07:45 Q15MIN PRN BG 50-70 responsive npo pt Dextrose 50 ml 01/15/25 07:46 Dextrose 50%-Water Inj 50 Ml Syringe IV 02/14/25 07:45 Q15MIN PRN BG <50 OR BG <70 & pt unresponsive Gabapentin 600 mg 01/14/25 09:00 01/15/25 11:35 Gabapentin 300 Mg Capsule PO 02/13/25 08:59 600 mg BID TELMA Administration Glucagon 1 mg 01/15/25 07:46 Glucagon Inj 1 Mg Vial IM Q15MIN PRN BG <70, and no IV access Heparin Sodium/Dextrose 25,000 unit in 250 mls @ 9.999 mls/hr 01/14/25 05:30 01/15/25 11:01 Heparin In D5w Ivpb IV 01/28/25 04:44 13.05 units/kg/hr .Q24H TELMA 11.809 mls/hr Titration Protocol 11.05 UNITS/KG/HR Metoprolol Tartrate 25 mg 01/14/25 21:00 01/15/25 11:34 Metoprolol Tartrate 25 Mg Tablet PO 02/13/25 20:59 25 mg BID TELMA Administration Nitroglycerin 0.4 mg 01/14/25 04:50 Nitroglycerin 0.4 Mg Subl Btl #25 SL Q5MIN PRN CHEST PAIN Ondansetron HCl 4 mg 01/14/25 04:30 Ondansetron Inj 2 Mg/Ml Inj 2 Ml IV 02/13/25 04:29 Q6H PRN NAUSEA OR VOMITING Protocol Sennosides 1 tab 01/15/25 08:00 Senna/Docusate Sod 1 Tab Tablet PO 02/14/25 07:59 QDAY PRN CONSTIPATION Protocol Plan Mr. Lentz is a 79-year-old male with past medical history significant for neurofibromatosis type I, hyperlipidemia, mitral valve repair in 2016, hypertension who presented to the ED after experiencing shortness of breath and left-sided chest pain , troponin was elevated, some changes was noted on EKG and patient was admitted for further management. #Elevated Troponin #NSTEMI vs Unstable Angina #Chest pain Presented with left sternal chest pain that radiated to left shoulder, relieved with nitro. Chest pain was sharp and come on suddenly without any exertion. Likely NSTEMI type I vs unstable angina Diagnostics: EKG: incomplete right bundle branch block pattern and Q-waves in leads V1 and V2 suggestive of possible septal myocardial infarction of undetermined age. 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 Plan: -Cath Thursday -NPO after midnight -Stop heparin drip 6 hours prior to nickel operator, [facility] order - Echo - ASC protocol ([id number] mg qday, plavix 75 mg qday, [id number] mg HS, Metoprolol, Heparin drip) - Nitroglycerin 0.4 SL PRN - Tylenol for fever and pain - Cardiology Consulted, Dr. Muir, pending recommendations. #MV repair #Hx of CAD #Hyperlipidemia #HTN Arteriosclerotic heart disease with previous history of left internal mammary artery bypass graft to the left anterior descending coronary artery. Status post previous mitral valve repair. -management as above -cardio on board #Neurofibromatosis type I Will restart patient's home gabapentin 600 mg p.o. twice daily #Osteoporosis alendronate 10 mg p.o. twice daily Health Maintenance: Disposition: Patient is admitted to telemetry for further management of rule out ACS. Pending echocardiogram, repeat troponin and labs.Cardio is Dr. Muir DVT prophylaxis: Heparin drip Diet: Cardiac Aragon: No Lines: PIV Supplemental O2: As needed CODE STATUS: DNR, if paperwork is needed if not reflected in hospital paperwork, can reach out to patient's spouse for further documentation; you can reach spouse, Rajendra Maldonado at [phone] - The patient's plan was discussed with attending Dr. Enedelia Avelar MD PGY1 Internal Medicine Attending Provider Attestation/Addendum I reviewed labs, imaging, EKG, home medications and prior available records. Face to face evaluation was performed by me. I have personally examined the patient and discussed assessment and plan with the IM team. I reviewed the resident note and agree with the plan with exceptions as below. Non-STEMI RBBB Neurofibromatosis type I Hyperlipidemia History of mitral valve repair Hyperkalemia Continue aspirin and atorvastatin Continue heparin drip Consults cardiology: Increased aspirin to 325 mg daily. Plan for cardiac catheterization on 01/16 Gave Kayexalate and dextrose. Monitor potassium level Troponin peaked Ordered echocardiogram Continue metoprolol Continue gabapentin
[2025-01-15 14:13] LABS: Anion Gap 4 (7-16); BUN/Creatinine Ratio 9 Ratio (12-20); Blood Urea Nitrogen 7 mg/dL (9-23); Calcium 10.2 mg/dL (8.3-10.6); Calcium (Corrected) 10.2 mg/dL (8.5-10.1); Carbon Dioxide 28.6 mMol/L (20.0-31.0); Chloride 105 mMol/L (98-107); Creatinine (Component) 0.8 mg/dL (0.6-1.3); Estimated Creatinine Clearance 74.2 mL/min (>60); Glucose 108 mg/dL (74-106); Osmolality,Calculated 274 (275-295); Phosphorous 4.6 mg/dL (2.4-5.1); Potassium 4.5 mMol/L (3.4-5.1); Sodium 138 mMol/L (136-145); eGFR > 60 See Note
--- NOTE | 2025-01-15 16:33 | PC.SS ---
This is 79-year-old, , male who presented to the ED due to suffering from high heart rate and BP. Patient appeared alert and oriented to self, place and situation. Patient resides at home with his , Rajendra. Patient is independent with all ADLs. Patient uses a walker or cane for ambulation. Patient assigned his , Rajendra (phone : [phone]) as his emergency medical decision maker. Patient's PCP is Dr. Singh in [place] and product marketing analyst Dr. Lao. When medically clear, patient will return home, no transportation is needed.
--- NOTE | 2025-01-15 19:13 | ESPR_ITS ---
RE: DORA LENTZ : 1945 DATE OF SERVICE: 01/15/2025 CARDIAC FOLLOWUP NOTE SUBJECTIVE: Mr. Lentz is resting comfortably in bed. The patient is breathing well. Denies any complaint of chest pain. Denies any complaints of skipped beats or palpitations. OBJECTIVE: Vital Signs: The patient's blood pressure this afternoon is 146/82, pulse rate is 84 and regular, respiratory rate is 24, temperature is 97.2, and oximetry saturation on room air is 95%. Heart and Lungs: Clear. Extremities: No pedal edema is noted. LABORATORY DATA: Lab work today shows WBC count is 6,900 and hemoglobin 13.5 with hematocrit of 41.5. BUN today is 7, creatinine 0.8, and potassium level is 4.5. The patient's troponin level this morning is slightly lower than last night and is down to 0.324 from 0.337 last night. PLAN: To continue the patient on all present medications and general supportive care. The patient will be scheduled for cardiac catheterization, coronary angiography and bypass graft angiography because of the patient's symptoms of previous history of coronary artery disease requiring coronary artery bypass graft surgery and elevated troponin level suggestive of possible [id number] elevation and mild myocardial infarction. The patient is explained in detail about the procedure including the risks. DT: 17:21:00 TT: 19:11:00 Ref: [id number] - TID: [id number]
[2025-01-15] MEDS: ATORVASTATIN CALCIUM 20 MG TABLET 80 MG PO (20:10)
[2025-01-15] MEDS: LACTULOSE SYRUP 20 GM/30 ML UDC 10 GM PO (20:10)
[2025-01-16] VITALS (20 sets, daily range): BP systolic 124–163; BP diastolic 59–89; PULSE 69–88; RESP 18–94; TEMP 36.2–36.8; O2SAT 92–98; BMI 35.2
--- NOTE | 2025-01-16 04:30 | ECHO_ITS ---
Transthoracic Echo Report Ht (in): 63 Wt (lb): 198 Exam Location: Portable Status: Inpatient [facility] Driver: KUSH Gasca^^^^ Indications: Procedure Performed: BP: / HR: Technical Quality: Technically difficult study MEASUREMENTS (Male / Female) Normal Values 2D ECHO LV Diastolic Diameter PLAX 4.7 cm 4.2 - 5.9 / 3.9 - 5.3 cm LV Systolic Diameter PLAX 3.5 cm IVS Diastolic Thickness 1.0 cm 0.6 - 1.0 / 0.6 - 0.9 cm LVPW Diastolic Thickness 1.1 cm 0.6 - 1.0 / 0.6 - 0.9 cm LV Relative Wall Thickness 0.4 LVOT Diameter 1.9 cm Aortic Root Diameter 3.3 cm LA Systolic Diameter LX 3.8 cm 3.0 - 4.0 / 2.7 - 3.8 cm LV Ejection Fraction MOD 4C 70.9 % LV Ejection Fraction 4C AL 71.7 % LA Volume Index 42.1 cm?/m? 16 - 28 cm?/m? Ascending Aorta Diameter 2.8 cm DOPPLER AV Peak Velocity 128.5 cm/s AV Peak Gradient 6.6 mmHg AV Mean Gradient 5.0 mmHg AV Velocity Time Integral 29.4 cm LVOT Peak Velocity 75.4 cm/s LVOT Peak Gradient 2.3 mmHg LVOT Velocity Time Integral 22.6 cm AV Area Cont Eq vti 2.2 cm? AV Area Cont Eq pk 1.7 cm? MV Area PHT 2.0 cm? Mitral E Point Velocity 58.3 cm/s Mitral A Point Velocity 60.8 cm/s Mitral E to A Ratio 1.0 LV E' Lateral Velocity 8.0 cm/s Mitral E to LV E' Lateral Ratio 7.3 LV E' Septal Velocity 4.9 cm/s Mitral E to LV E' Septal Ratio 12.0 TR Peak Velocity 189.0 cm/s TR Peak Gradient 14.3 mmHg PV Peak Velocity 87.5 cm/s PV Peak Gradient 3.1 mmHg RVOT Peak Velocity 57.6 cm/s FINDINGS Left Ventricle The left ventricular ejection fraction is normal, estimated at 55-60%. There is grade III diastolic dysfunction of the left ventricle (restrictive filling pattern). Regional wall motion abnormalities are present with LV apical akinesis & possible LV apical organised & calicif thrombus. Small segment of basal inferior wall hypokinesis. Right Ventricle The right ventricle is normal in size and systolic function. The estimated right ventricular systolic pressure, 17 mmHg. Left Atrium Mildly increased left atrial volume 42.1 mL/m?. Right Atrium The right atrium is normal by two-dimensional imaging, color flow and Doppler imaging with no structural abnormalities, no thrombus formation present. Atrial Septum The interatrial septum appears normal with no evidence of a shunt. Aorta The aorta is normal by two-dimensional, color flow and Doppler interrogation. Mitral Valve Mild mitral regurgitation. Mild mitral annular calcification. MV repaired Aortic Valve Aortic valve sclerosis. Tricuspid Valve There is mild tricuspid valve regurgitation. Pulmonic Valve Trivial pulmonic valve regurgitation. Vessels The pulmonary artery appears normal. The inferior vena cava pulmonary and hepatic veins appear normal. Pericardium The pericardium is normal by two-dimensional imaging. There is no significant pericardial effusion. CONCLUSIONS indication: r/o ACS LV appears normal with EF 55-60%. with segmental LV wall motion abnormalities. LV diastolic dysfunction noted. RV appears normal with RVSP 17 mmHg. LA is mildly dilated. Mild MR across previously repaired mitral valve Mild aortic sclerosis Mild TR Jorge Wood (Electronically Signed) Final Date: 16 January 2025 12:51
[2025-01-16 06:34] LABS: Basophils # (Auto) 0.1 Thou/mm3 (0.0-0.2); Basophils % (Auto) 1 % (0-2.5); Eosinophils # (Auto) 0.3 Thou/mm3 (0.0-0.5); Eosinophils % (Auto) 4 % (0-10); Hematocrit 41.2 % (41.0-53.0); Hemoglobin 13.7 g/dL (13.5-16.0); Immature Granulocytes % (Auto) 0 % (0-0); Immature Granulocytes Auto 0.03 Thou/mm3 (0.00-0.00); Lymphocytes # (Auto) 1.6 Thou/mm3 (1.0-4.8); Lymphocytes % (Auto) 24 % (10-50); Mean Corpuscular HGB Conc 33.3 g/dl (31.0-37.0); Mean Corpuscular Hemoglobin 29.3 pg (25.0-35.0); Mean Corpuscular Volume 88 fL (80-100); Monocytes # (Auto) 0.9 Thou/mm3 (0.0-0.8); Monocytes % (Auto) 13 % (0-12); Neutrophils % (Auto) 58 % (37-80); Nucleated Red Blood Cell % 0 /100 WBC (0); Platelet Count 191 Thou/mm3 (140-440); RDW Standard Deviation 43.7 fL (35.1-43.9); Red Blood Count 4.68 Miln/mm3 (4.50-5.90); White Blood Count 6.9 Thou/mm3 (3.8-10.6)
[2025-01-16 06:46] LABS: Alanine Aminotransferase 12 U/L (10-49); Albumin, Serum 3.7 gm/dL (3.4-4.8); Albumin/Globulin Ratio 1.4 (1.2-2.2); Alkaline Phosphatase 65 U/L (46-116); Anion Gap 6 (7-16); Aspartate Amino Transferase 12 U/L (0-34); BUN/Creatinine Ratio 10 Ratio (12-20); Bilirubin,Total 0.6 mg/dL (0.3-1.2); Blood Urea Nitrogen 8 mg/dL (9-23); Calcium (Corrected) 9.2 mg/dL (8.5-10.1); Carbon Dioxide 26.8 mMol/L (20.0-31.0); Chloride 104 mMol/L (98-107); Creatinine (Component) 0.8 mg/dL (0.6-1.3); Globulin 2.7 gm/dL (2.3-3.5); Glucose 105 mg/dL (74-106); Magnesium 1.9 mg/dL (1.6-2.6); Osmolality,Calculated 272 (275-295); Potassium 4.9 mMol/L (3.4-5.1); Sodium 137 mMol/L (136-145); Total Protein 6.4 gm/dL (5.7-8.2); eGFR > 60 See Note
[2025-01-16] MEDS: CLOPIDOGREL BISULFATE 75 MG TABLET PO (08:17)
[2025-01-16] MEDS: Aspirin 325 MG TABLET PO (08:17)
[2025-01-16] MEDS: METOPROLOL TARTRATE 25 MG TABLET PO (08:17)
--- NOTE | 2025-01-16 11:29 | PD.RESPRO ---
Documentation for date of: 01/16/25 Exam Vital Signs Temp Pulse Resp BP Pulse Ox O2 Del Method O2 Flow Rate 97.8 F 78 20 163/77 H 95 Room Air 2 01/16/25 08:36 01/16/25 08:36 01/16/25 08:36 01/16/25 08:36 01/16/25 08:36 01/16/25 08:36 01/14/25 00:30 Objective Labs 01/16/25 05:41 01/16/25 05:41 Labs: Laboratory Results - last 24 hr 01/15/25 01/16/25 13:33 05:41 WBC 6.9 RBC 4.68 Hgb 13.7 Hct 41.2 MCV 88 MCH 29.3 MCHC 33.3 RDW Std Deviation 43.7 Plt Count 191 Neut % (Auto) 58 Lymph % (Auto) 24 [place] % (Auto) 13 H Eos % (Auto) 4 Baso % (Auto) 1 Neut # (Auto) 4.0 Lymph # (Auto) 1.6 [place] # (Auto) 0.9 H Eos # (Auto) 0.3 Baso # (Auto) 0.1 Immature Gran # (Auto) 0.03 H Absolute Nucleated RBC 0.00 Immature Gran % 0 Nucleated RBC % 0 PT 11.0 INR 1.0 APTT 28.0 D Sodium 138 137 Potassium 4.5 D 4.9 Chloride 105 104 Carbon Dioxide 28.6 26.8 Anion Gap 4 L 6 L BUN 7 L 8 L Creatinine 0.8 0.8 Estim Creat Clear Calc 74.2 74.0 eGFR > 60 > 60 BUN/Creatinine Ratio 9 L 10 L Glucose 108 H 105 Calculated Osmolality 274 L 272 L Calcium 10.2 9.0 Corrected Calcium 10.2 H 9.2 Phosphorus 4.6 5.0 Magnesium 1.9 Total Bilirubin 0.6 AST 12 ALT 12 Alkaline Phosphatase 65 Total Protein 6.4 Albumin 4.0 3.7 Globulin 2.7 Albumin/Globulin Ratio 1.4 Quality Measures Quality Measures none Assessment & Plan Assessment Current Active Medications: Generic Name Dose Route Start Last Admin Trade Name Freq PRN Reason Stop Dose Admin Acetaminophen 650 mg 01/14/25 04:30 01/14/25 15:38 Acetaminophen 325 Mg Tablet PO 02/13/25 04:29 650 mg Q6H PRN Administration Fever >100.4 or Pain 1-3 Aspirin 325 mg 01/15/25 09:00 01/16/25 08:17 Aspirin 325 Mg Tablet PO 02/14/25 08:59 325 mg QDAY TELMA Administration Atorvastatin Calcium 80 mg 01/14/25 21:00 01/15/25 20:10 Atorvastatin Calcium 20 Mg Tablet PO 02/13/25 20:59 80 mg HS TELMA Administration Clopidogrel Bisulfate 75 mg 01/15/25 09:00 01/16/25 08:17 Clopidogrel Bisulfate 75 Mg Tablet PO 02/14/25 08:59 75 mg DAILY TELMA Administration Dextrose 25 ml 01/15/25 07:46 Dextrose 50%-Water Inj 50 Ml Syringe IV 02/14/25 07:45 Q15MIN PRN BG 50-70 responsive npo pt Dextrose 50 ml 01/15/25 07:46 Dextrose 50%-Water Inj 50 Ml Syringe IV 02/14/25 07:45 Q15MIN PRN BG <50 OR BG <70 & pt unresponsive Gabapentin 600 mg 01/14/25 09:00 01/15/25 20:40 Gabapentin 300 Mg Capsule PO 02/13/25 08:59 600 mg BID TELMA Administration Glucagon 1 mg 01/15/25 07:46 Glucagon Inj 1 Mg Vial IM Q15MIN PRN BG <70, and no IV access Heparin Sodium/Dextrose 25,000 unit in 250 mls @ 9.999 mls/hr 01/14/25 05:30 01/16/25 07:59 Heparin In D5w Ivpb IV 01/28/25 04:44 Not Given .Q24H TELMA Protocol 11.05 UNITS/KG/HR Lactulose 10 gm 01/15/25 18:45 01/15/25 20:10 Lactulose Syrup 20 Gm/30 Ml Udc PO 02/14/25 18:44 10 gm QDAY TELMA Administration Protocol Lisinopril 2.5 mg 01/16/25 15:00 Lisinopril 2.5 Mg Tablet PO 02/15/25 14:59 QDAY TELMA Metoprolol Tartrate 25 mg 01/14/25 21:00 01/16/25 08:17 Metoprolol Tartrate 25 Mg Tablet PO 02/13/25 20:59 25 mg BID TELMA Administration Nitroglycerin 0.4 mg 01/14/25 04:50 Nitroglycerin 0.4 Mg Subl Btl #25 SL Q5MIN PRN CHEST PAIN Ondansetron HCl 4 mg 01/14/25 04:30 Ondansetron Inj 2 Mg/Ml Inj 2 Ml IV 02/13/25 04:29 Q6H PRN NAUSEA OR VOMITING Protocol Sennosides 1 tab 01/15/25 08:00 Senna/Docusate Sod 1 Tab Tablet PO 02/14/25 07:59 QDAY PRN CONSTIPATION Protocol
--- NOTE | 2025-01-16 11:44 | PC.SS ---
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
--- NOTE | 2025-01-16 13:10 | ESPR_ITS ---
RE: DORA LENTZ : 1945 DATE OF SERVICE: 01/16/2025 S: Mr. Lentz is resting comfortably in bed this morning. The patient is breathing well. Denies any complaint of chest pain. Denies any complaints of skipped beats or palpitations. O: Vital Signs: The patient's blood pressure this morning is 144/66. Pulse rate is 74 per minute and regular. Temperature is 97.6. Respiratory rate is 24 per minute. Oxygen saturation is 95% on room air. Heart and Lungs: Clear. Extremities: No pedal edema is noted. Laboratory Data: This morning showed WBC count of 6900, hemoglobin 13.7 with hematocrit of 41.2. The patient's BUN this morning is 8, creatinine 0.8, potassium level is 4.9. P: The patient is scheduled for cardiac catheterization and coronary angiography today. The procedure is explained in detail to the patient including the risks. DT: 13:02:10 TT: 13:08:00 Ref: [id number] - TID: [id number]
--- NOTE | 2025-01-16 14:14 | ESDS_ITS ---
Planned Discharge Date 01/16/25 DS: Providers Provider Date of admission: 01/14/25 04:30 Primary care physician: Physician No Primary/Family Admitting Provider: Didier Pardo MD Attending Provider on Admission: Didier Pardo MD Consults: 01/14/25 03:38 Consult to Cardiology Stat Comment: Consulting Provider: Jorge Muir 01/14/25 04:38 PT [Referral Physical Therapy] Stat Comment: Physician Instructions: Attending Provider on DC: Elisabeth Avelar MD Discharging Provider: Elisabeth Avelar MD DS: Diagnosis Problem List Completed Was Problem List Reviewed/Reconciled?: Yes Hospital Course Hospital Course Hospital course: Summary: Patient is a 79-year-old male with a past medical history neurofibromatosis, hypertension, hyperlipidemia, mitral valve repair in 2014, CAD w/ history of CABG who 01/14/2025 for NSTEMI likely type I chest pain. ER Course: Patient presented with a blood pressure 174/67, heart rate of 114, and afebrile. Patient initially was on room air, however desaturated for a while, briefly requiring nasal cannula. Labs significant for elevated troponin at 0.506, first troponin was negative at 0.021. BNP was also mildly elevated at 295. UA was negative for UTI. First EKG showed Sinus tachycardia and some nonspecific ST T changes, and repeat EKG status post intervention showed mild ST elevation in lead III as well as a new right bundle branch block, otherwise sinus rhythm. Chest x-ray showed mild CHF pattern. CTA ruled out PE. Hospitalization: During patient's hospitalization, cardiology was consulted and patient was started on a heparin drip ACS. EKG on admission showed sinus rhythm, right bundle branch block, and no ST elevation appreciated. Troponins on admission initially troponin of 0.414, 0.337, and 0.324 which down trended. Echo on 01/16/2025 showed preserved ejection fraction of 55%-60% with segmental LV wall motion abnormalities. RVSP 17 mmg. Patient was started on Atorvastatin, Aspirin, Plavix, and Metroprolol. In addition, Lisinopril was added for blood pressure control. Patient taken to senior label specialist on 01/16/2025 showing coronary artery disease with 100% occlusion of the mid left anterior descending coronary artery and distral left anterior descending coronary artery descending cornary artery being filled from the left internal mammary artery bypass graft and multi-vessel disease showing stenosis. Medical mangement at this time, so surgical intervention. 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 Instructions: -New medication, Plavix 75 mg once daily for cardiovascular health -New medication, Lisinopril 5 mg once daily for blood pressure control -continue the rest of your home medication as prescribed -Please follow up with Dr. 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, within one week of discharge -Please follow up with your primary care provider within one week of discharge -If your symptoms worsen,please seek immediate medical attention and return to your nearest emergency room -If you do not have a primary care provider, you may follow up at the [facility] at [address] [place] [address] [address], [place] [address], Patient is stable to discharge home. #NSTEMI likely type I #RBBB #Chest pain #MV repair #Hx of CAD s/p CABG #Hyperlipidemia #HTN #Neurofibromatosis type I #Osteoporosis #Hyperkalemia - The patient's plan was discussed with attending Dr. Enedelia Avelar MD PGY1 Internal Medicine Time Spent with Patient Time attestation: Total time spent providing and/or coordinating discharge services: at least 30 minutes of care and coordination Time spent: Greater than 30 minutes Exam Vital Signs Temp Pulse Resp BP Pulse Ox O2 Del Method O2 Flow Rate 97.7 F 72 18 145/84 H 98 Room Air 2 01/16/25 13:25 01/16/25 13:25 01/16/25 13:25 01/16/25 13:25 01/16/25 13:25 01/16/25 13:25 01/14/25 00:30 Narrative Exam General Appearance: Alert & Oriented X3, well-nourished male who is lying in bed in no acute distress w/ a CABG scar visible in center of chest that is well healed HEENT: Skull symmetrical and atraumatic. Conjunctivae pin and moist. Pupils equal, round, reactive to light and accommodation (PERRL). External ear without lesion or discharge. Straight, nares patient, mucosa pink, no discharge. No thyroid nodule appreciated. No cervical lymphadenopathy. Cardio: Normal Rate and Rhythm with S1 and S2 heart sounds. No murmurs or extra heart sounds auscultated. No bruits on carotid auscultation. No peripheral edema or cyanosis. Lungs: Symmetric with good expansion. Chest and back non-tender. Breath sounds vesicular without crackles, wheezing or rhonchi Abdomen: Non-tender, Non-distended, Normal Reactive Bowel Sounds Neuro: Alert, cooperative, oriented to person, place, and time. Speech clear. CN grossly intact. Upper motor strength 5/5 and Lower motor strength 5/5. Sensation intact. Discharge Plan Plan Patient Disposition: HOME (Self Care) Care Plan Goals: Instructions: -New medication, Plavix 75 mg once daily for cardiovascular health -New medication, Lisinopril 5 mg once daily for blood pressure control -continue the rest of your home medication as prescribed -Please follow up with Dr. 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, within one week of discharge -Please follow up with your primary care provider within one week of discharge -If your symptoms worsen,please seek immediate medical attention and return to your nearest emergency room -If you do not have a primary care provider, you may follow up at the [facility] at [address] [place] [address] [address], [place] [address], Prescriptions/Referrals Prescriptions/Med Rec: New clopidogrel [Plavix] 75 mg tablet 75 mg PO QDAY Qty: 30 0RF lisinopril 2.5 mg Tablet 5 mg PO QDAY 30 Days Qty: 60 0RF Continued alendronate 10 mg Tablet 10 mg PO BID atorvastatin 40 mg Tablet 40 mg PO QPM gabapentin 600 mg Tablet 600 mg PO BID metoprolol tartrate 25 mg Tablet 25 mg PO BID cyanocobalamin (vitamin B-12) 1,000 mcg Tablet 1,000 mcg PO QDAY docusate sodium [Colace] 100 mg Capsule 1 mg PO BID aspirin 81 mg Tablet 81 mg PO QDAY Calcium 600 with Vitamin D3 600 mg-10 mcg (400 unit) Tablet,Chewable 1 tab PO DAILY gabapentin 300 mg capsule 300 mg PO BID PRN (Reason: breakthrough pain) dextran 70-hypromellose Dropperette 1 drp ophthalmic (eye) Q6H PRN (Reason: dry eye(s)) Rx Instructions: both eyes ketotifen fumarate [Alaway] 0.025 % (0.035 %) drops 1 drp ophthalmic (eye) BID Rx Instructions: administer at least 8 hours apart Referrals: Jorge Muir MD [Physician] - No Primary/Family,Physician [Primary Care Provider] - Patient/Caregiver Discharge Instructions Education Materials: Symptoms of a Heart Attack, Medicines for Heart Disease Print Language: Togolese Stand Alone Forms: Candis Award Info., Patient Portal Info Letter Discharge Order Discharge Orders: Discharge (Routine); Ordered 01/16/25 Ordered By: Elisabeth Avelar Quality Discharge Quality Measures VTE prophylaxis MD Attestestation MD Attestation I reviewed labs, imaging, EKG, home medications and prior available records. Face to face evaluation was performed by me. I have personally examined the patient and discussed assessment and plan with the IM team. I reviewed the resident note and agree with the plan with exceptions as below. Non-STEMI RBBB Neurofibromatosis type I Hyperlipidemia History of mitral valve repair Hyperkalemia S/p cardiac catheterization that showed moderate CAD and patent bypass Continue aspirin, Plavix, and atorvastatin Outpatient follow-up with cardiology Follow-up BMP as outpatient Troponin peaked Ordered echocardiogram: Showed EF of 55 to 60% and diastolic function noted in addition to mild valvular disease Continue metoprolol Continue gabapentin Time spent is 40 minutes. More than 50% of the time was spent on patient education and coordination of care.
--- NOTE | 2025-01-16 15:27 | ESOP_ITS ---
RE: DORA HOGAN : 1945 DATE OF OPERATION: 01/16/2025 PROCEDURE PERFORMED: 1. Left heart catheterization. 2. LV angiography. 3. Selective left and right coronary angiography. 4. Aortic root angiography. 5. Selective left internal mammary artery bypass graft angiography. 6. Selective right femoral arterial angiography. 7. Angio-Seal closure of the right femoral arterial puncture site. 8. Conscious sedation monitoring. INDICATIONS FOR PROCEDURE: The patient with a history of arteriosclerotic heart disease with previous history of coronary artery bypass graft surgery and mitral valve repair in 2014, history of chronic hypertension, history of hyperlipidemia. The patient was hospitalized with symptoms of chest pain with mildly elevated troponin level. DETAILS OF THE PROCEDURE: After explaining the procedure in detail to the patient and after obtaining a proper consent, the patient was given 1 mg of intravenous Versed and 50 mcg of intravenous fentanyl as premedication. The right groin area was prepped with antiseptic solution. Local anesthetic 2% lidocaine was used and the right femoral artery was punctured by Seldinger technique and Hemoclip sheath size 6-Senegalese was put in the right femoral artery. Through the sheath, a pigtail catheter size 6-Senegalese was advanced and positioned in the ascending aorta. Aortic pressure was recorded and catheter was placed across the aortic valve into the left ventricle. Left ventricular pressure was recorded and LV angiography was performed in DURANT view using 36 mL of dye at a rate of 12 mL per second over a period of 3 seconds. After the left ventricular angiography, the pullback pressure was recorded from left ventricle into the aorta and aortic root angiography was performed in TURKISH view using 30 mL of dye at a rate of 15 mL per second over a period of 2 seconds. After the aortic root angiography, the catheter was pulled out and was exchanged with preformed left coronary Praneeth catheter size 6-Senegalese JL4, which was advanced with the help of a J-wire and tip positioned over the left coronary ostium. Several views of the left coronary artery were taken and after the left coronary angiography, the catheter was exchanged with preformed right coronary Praneeth catheter size 6-Senegalese JR4, which was advanced with the help of a J-wire and tip positioned over the right coronary ostium. Three views of the right coronary artery were taken and after the right coronary angiography, the catheter was exchanged with size 6-Senegalese internal mammary artery diagnostic catheter, which was advanced with the help of a J-wire, though difficulty was noted in advancing the catheter in the left subclavian artery. The guidewire at that time was changed to a Terumo J-wire, which was able to be advanced in the left subclavian artery and the left internal mammary artery was cannulated. Left internal mammary artery angiography was performed in three different views after the left internal mammary artery angiography, the catheter was pulled out and right femoral arterial angiography was performed in DURANT as well as in TURKISH views as the arterial puncture site was above the bifurcation of the right common femoral artery and right femoral angiography was normal. A 6-Senegalese Angio-Seal catheter was used to close the puncture site without any problems. The patient tolerated the procedure very well. RESULTS OF THE PROCEDURE: The hemodynamic data showed aortic pressure is 136/56 with a mean of 83 mmHg. The left ventricular pressure is 129/13 mmHg. Post angiography, left ventricular pressure is 130/21 mmHg. There is no gradient across the aortic valve on pullback pressure. The left ventricular angiography showed normal sized left ventricle with left ventricular apical akinesis and calcification of the left ventricular apical area. The left ventricular small segment of inferior basal segment marked, hypokinesis is also noted with overall good left ventricular systolic function with ejection fraction of 55%, 2+ mitral regurgitation is noted and left atrial enlargement is also noted. Aortic root angiography is normal and no vein bypass grafts were visualized on the aortic root angiography. The coronary angiography showed left main coronary artery is normal. The left anterior descending coronary artery shows good size first diagonal branch, which showed 30% stenosis in its proximal portion and mid left anterior descending coronary artery showed 40% stenosis before the origin of the larger second diagonal branch and total occlusion of the left anterior descending coronary artery is noted after the region of the larger second diagonal branch and the septal branches are normal. The distal left anterior descending coronary artery is filling from the left internal mammary artery bypass graft. The circumflex coronary artery is normal and is free of any luminal narrowing. The right coronary angiography shows large dominant right coronary artery with 30% stenosis in the proximal portion and 20% eccentric stenosis in the mid portion. The posterior descending branch as well as LV posterolateral branches of the right coronary artery are normal. Left internal mammary artery bypass graft angiography shows small caliber bypass graft with small caliber distal left anterior descending coronary artery, though no luminal narrowing of the bypass graft or the distal left anterior descending coronary artery is noted. The right femoral arterial angiography is normal and arterial puncture site is above the bifurcation of the right common femoral artery. FINAL IMPRESSION: 1. Coronary artery disease with 100% occlusion of the mid left anterior descending coronary artery and distal left anterior descending coronary artery being filled from the left internal mammary artery bypass graft, which is patent, 40% stenosis of the mid left anterior descending coronary artery before the origin of the larger second diagonal branch and 30% stenosis of the proximal first diagonal branch, 30% stenosis of the proximal right coronary artery, and 20% eccentric stenosis of the mid right coronary artery. 2. Left ventricular apical akinesis with possible calcification and small segment of left ventricular inferior basal marked hypokinesis with overall normal left ventricular systolic function with ejection fraction of 55%. 3. Moderate mitral regurgitation across the previously repaired mitral valve. 4. Normal right femoral arterial angiography. RECOMMENDATIONS: The patient was recommended continuation of medical management for the control of the symptoms as well as coronary risk factor reduction. DT: 13:16:44 TT: 15:26:00 Ref: [id number] - TID: [id number]
[2025-01-16] MEDS: Lisinopril 2.5 MG TABLET 5 MG PO (15:31)
--- NOTE | 2025-01-16 15:44 | PC.PT ---
Patient was aproached but was in a cardiac manager laboratory procedure at 9:54 Will hold PT eval for today to allow patient to rest and recover. Will re-attempt PT eval at another time.
--- NOTE | 2025-01-16 17:00 | PC.NURSE ---
1240: Pt fully awake, oriented x3. Report to Telemetry. Pt transferred to room 262 in stable condition.
[2025-01-16] MEDS: SOD POLYSTYRENE SULFON SUSP 15 GM/60 ML BTL PO (17:05)
[2025-01-16] MEDS: LACTULOSE SYRUP 20 GM/30 ML UDC 10 GM PO (17:05)
== END 2025-01-16 17:40 | disposition home or self-care (01) | DRG 282 ==
LOC: SERX 01-14 04:00 → SERHOLD 01-14 04:57 → S2NX 01-14 14:10
PROVIDERS: Internal Medicine Cardiovascular Disease; Physician Assistant; Student in an Organized Health Care Education/Training Program; Admitting Provider Student in an Organized Health Care Education/Training Program; Emergency Provider Emergency Medicine; Visit Provider Student in an Organized Health Care Education/Training Program
DX: I21.4 Non-ST elevation (NSTEMI) myocardial infarction (principal); I25.10 Atherosclerotic heart disease of native coronary artery without angina pectoris; I45.10 Unspecified right bundle-branch block; E78.5 Hyperlipidemia, unspecified; I50.9 Heart failure, unspecified; I11.0 Hypertensive heart disease with heart failure; M81.0 Age-related osteoporosis without current pathological fracture; E87.5 Hyperkalemia; Q85.01 Neurofibromatosis, type 1; Z95.1 Presence of aortocoronary bypass graft; I34.0 Nonrheumatic mitral (valve) insufficiency; Z66 Do not resuscitate; Z79.02 Long term (current) use of antithrombotics/antiplatelets; Z79.83 Long term (current) use of bisphosphonates; Z79.899 Other long term (current) drug therapy
CPT/HCPCS: 36415; 71045; 71275; 80053; 80061; 80069; 81001; 83605; 83735; 83880; 84100; 84145; 84443; 84484; 85025; 85610; 85730; 93005; 93306; 99152; 99153; 99285; A4649; C1760; C1769; C1894; J0153; J0171; J0282; J0461; J1643; J1644; J1815; J2250; J2310; J2371; J3010; J3490; Q9967; A9270